=== PATIENT | male | born 1970 | race Caucasian/White ===

== ENCOUNTER 2021-09-05 11:30 | Emergency (ER) | payer OTHER, MEDICAID, SELFPAY ==
[2021-09-05 11:38] VITALS: BP 149/92; PULSE 91; RESP 17; TEMP 37.1; O2SAT 100
--- NOTE | 2021-09-05 12:02 | ED_ITS ---
HPI - Back Pain/Injury General Chief Complaint: Back Pain/Injury Stated Complaint: BACK PAIN Time Seen by Provider: 09/05/21 11:55 Source: patient History of Present Illness HPI Narrative: Patient here for worsening chronic daily lower back pain radiating to the right hip. Review of [facility] report shows patient has been multiple MRSA department in the past month, 9 ER visits [facility] multiple hospitals[facility] [place]. Seen in emergency department 3 days ago. Patient states last MRI many years ago early when the pain was not as bad. Denies denies any IV drug use. No diabetes. No recent illness. No fever chills. No numbness or tingling or weakness to the legs or feet. No saddle paresthesia. No bowel or bladder incontinence or retention. Was given prescription for xanaflex on recent ER visit. Patient up and walking at bedside without difficulty. Able to bend over and takes shoes and socks off and undressed. Patient states he is homeless. He takes a bus to get around different cities in-hospital. Denies any IV drug use or diabetes or immune suppressive medications Related Data Home Medications Medication Instructions Recorded Confirmed hydroxyzine HCl 50 mg tablet 50 mg PO TID 09/05/21 09/05/21 lithium carbonate 300 mg 600 mg PO BID 09/05/21 09/05/21 tablet,extended release Previous Rx's Medication Instructions Recorded baclofen 20 mg tablet 20 mg PO TID #21 tab 09/05/21 Allergies Allergy/AdvReac Type Severity Reaction Status Date / Time No Known Drug Allergies Allergy Verified 09/05/21 11:42 Review of Systems Review of Systems Narrative: GENERAL: Denies chills, fatigue, malaise, fever, sweats. HEENT: Denies sinus pain, ear pain, sore throat RESPIRATORY: Denies dyspnea, cough CARDIOVASCULAR: Denies chest pain, palpitations GASTROINTESTINAL: Denies nausea, vomiting, abdominal pain : Denies dysuria, frequency, hematuria MUSCULOSKELETAL: Positive muscle or bony pain SKIN: Denies rash, skin lesions NEUROLOGIC: Denies weakness, numbness ROS Unobtainable: All systems reviewed & are unremarkable except as noted in HPI and below Patient History Social History Smoking Status: Current every day smoker Smoking Status: Current every day smoker alcohol intake frequency: other Substance Use Type: marijuana Exam Narrative Exam Narrative: GENERAL: in no distress, not toxic not dyspneic, shoes and socks and pants removed HEAD: Normocephalic. EYES: Pupils equal round No scleral icterus. ENT: Mucous membranes moist. NECK: Trachea midline. CARDIOVASCULAR: Regular rate and rhythm without murmurs RESPIRATORY: Clear to auscultation. Breath sounds equal bilaterally. No wheezes, rales, or rhonchi. GASTROINTESTINAL: Abdomen soft, non-tender EXTREMITIES: No gross deformities. BACK: No flank tenderness. Reproducible right supragluteal muscle tenderness and spasm as well as right sacral tenderness. No midline tenderness or step-off of the thoracic or lumbar spine. Able to do side bends left and right as well as leaning forward. Increased pain with leaning back. Slightly antalgic gait but no footdrop at bedside. No pain with straight leg raise on the right. NEURO: AOx4. Strong bilateral patellar reflexes. Light touch intact to bilateral feet. Strong ankle flexion extension bilaterally. SKIN: Warm and dry PSYCH: Not anxious, is cooperative Initial Vital Signs Initial Vital Signs: Vital Signs Temperature 98.8 F 09/05/21 11:38 Pulse Rate 91 H 09/05/21 11:38 Respiratory Rate 17 09/05/21 11:38 Blood Pressure 149/92 H 09/05/21 11:38 Pulse Oximetry 100 09/05/21 11:38 Course Course Course Narrative: No new issues during course of stay. Orders Ordered: ED Orders 09/05/21 12:02 XR hip w pel if done RT 2V Stat XR lumbar spine 2-3V Stat Discontinued Medications Ketorolac Tromethamine (Ketorolac 30 Mg/Ml Vial) 15 mg IM NOW ONE Stop: 09/05/21 12:04 Last Admin: 09/05/21 12:11 Dose: 15 mg Documented by: EDWARD Reevaluation(s) Reevaluation #1: Pain is better. Review x-ray results with patient. Agrees with treatment plan and discharge home and follow-up with ortho spine. Given patient referral. Also agrees with prescription for baclofen Time: 13:04 Vital Signs Vital signs: Vital Signs - 8 hr 09/05/21 11:38 09/05/21 13:14 Temperature 98.8 F Pulse Rate 91 H Respiratory Rate 17 Blood Pressure 149/92 H 143/85 H Pulse Oximetry 100 MDM - Back Pain/Injury Differential Diagnosis Differential diagnosis: Likely lumbar radiculopathy, sciatica, strain of lumbar region, discitis and other (Spinal abscess/degenerative disc disease) Imaging Data Extremity x-ray #1: Radiologist's Impression: [address] [id number] XRay Report Signed Patient: Bryson Rene MR#: [id number] : 1970 Acct:[id number] Age/Sex: 51 / M Date of Service: 09/05/21 Loc: ED Accession Number: [id number] ?? Procedure: XR hip w pel if done RT 2V Ordering Provider: Jerson Lovett MD PROCEDURE:? XR HIP W PEL IF DONE RT 2V ? INDICATIONS:? Pain ? TECHNIQUE:? Frontal view of the pelvis and frogleg lateral view of the right hip was performed. ? COMPARISON:? None. ? FINDINGS:? ? Bones:? No fractures or dislocations.? No suspicious bony lesions.? The visualized pelvic ring appears intact.? Joint spaces are maintained.? Mild degenerative sclerosis and osteophytosis. ? Soft tissues:? No suspicious soft tissue calcifications or masses.? Pelvic phleboliths. ? IMPRESSION:? ? Mild degenerative changes of the hips without acute osseous abnormality. ? ? Dictated by: Edvin Parsons D.O. on 09/05/2021 at 11:32 ? ? Approved by: Edvin Parsons D.O. on 09/05/2021 at 11:33 ? Extremity x-ray #2: Radiologist's Impression: [address] [address] XRay Report Signed Patient: Bryson Rene MR#: [id number] : 1970 Acct:[id number] Age/Sex: 51 / M Date of Service: 09/05/21 Loc: ED Accession Number: [id number] ?? Procedure: XR lumbar spine 2-3V Ordering Provider: Jerson Lovett MD PROCEDURE:? XR LUMBAR SPINE 2-3V ? INDICATIONS:? Pain ? TECHNIQUE:? 2 views of the lumbar spine were acquired.? ? COMPARISON:? None. ? FINDINGS:? ? Bones:? 5 [id number] vertebrae are present.? There is normal bony alignment.? There is mild anterior wedging of L1.? There are bridging osteophytes noted T12-L1 and L1-L2 likely representing chronic process.? Vertebral body heights are otherwise maintained.? There is maintenance of the intervertebral disc spaces.? Mild endplate degenerative changes of L2-L3 as well.? Mild facet arthropathy of the lower lumbar spine.? Sacroiliac joints are unremarkable.? No suspicious bony lesions.? ? Soft tissues:? Overlying bowel gas pattern is normal.? No suspicious soft tissue calcifications.? Pelvic phleboliths. ? ? IMPRESSION:? ? Mild anterior wedging of L1 likely chronic given adjacent bridging osteophytes.? This may be posttraumatic versus physiologic. ? Mild degenerative lumbar spondylosis ? ? Dictated by: Edvin Parsons D.O. on 09/05/2021 at 11:33 ? ? Approved by: Edvin Parsons D.O. on 09/05/2021 at 11:36 ? MDM Narrative Medical decision making narrative: Appropriate for discharge home. Not toxic discharge. Return precautions reviewed with him. No laboratory studies indicated. No MRI. Clinically not abscess or diskitis. No fever chills. No neuro deficits. He agrees with treatment plan and discharged home. Exam reassuring. Discharge Plan Departure Patient Disposition: Home Clinical Impression: Acute exacerbation of chronic low back pain Instructions: Degenerative Disc Disease, DI for Low Back Pain Activity Restrictions/Additional Instructions: Return if worsening questions concerns. Call provided orthopedic office regarding your ongoing chronic back pain. Call Tuesday for office appointment. Return if worse or if any questions or concerns Prescriptions: New baclofen 20 mg tablet 20 mg PO TID Qty: 21 RF: 0 No Action lithium carbonate 300 mg tablet extended release 600 mg PO BID RF: 0 hydroxyzine HCl 50 mg tablet 50 mg PO TID RF: 0 Referrals: Stephen Minor MD [Physician] -
--- NOTE | 2021-09-05 12:02 | DI.RAD.S_ITS ---
PROCEDURE: XR LUMBAR SPINE 2-3V INDICATIONS: Pain TECHNIQUE: 2 views of the lumbar spine were acquired. COMPARISON: None. FINDINGS: Bones: 5 [id number] vertebrae are present. There is normal bony alignment. There is mild anterior wedging of L1. There are bridging osteophytes noted T12-L1 and L1-L2 likely representing chronic process. Vertebral body heights are otherwise maintained. There is maintenance of the intervertebral disc spaces. Mild endplate degenerative changes of L2-L3 as well. Mild facet arthropathy of the lower lumbar spine. Sacroiliac joints are unremarkable. No suspicious bony lesions. Soft tissues: Overlying bowel gas pattern is normal. No suspicious soft tissue calcifications. Pelvic phleboliths. IMPRESSION: Mild anterior wedging of L1 likely chronic given adjacent bridging osteophytes. This may be posttraumatic versus physiologic. Mild degenerative lumbar spondylosis Dictated by: Edvin Parsons D.O. on 09/05/2021 at 11:33 Approved by: Edvin Parsons D.O. on 09/05/2021 at 11:36
--- NOTE | 2021-09-05 12:02 | DI.RAD.S_ITS ---
PROCEDURE: XR HIP W PEL IF DONE RT 2V INDICATIONS: Pain TECHNIQUE: Frontal view of the pelvis and frogleg lateral view of the right hip was performed. COMPARISON: None. FINDINGS: Bones: No fractures or dislocations. No suspicious bony lesions. The visualized pelvic ring appears intact. Joint spaces are maintained. Mild degenerative sclerosis and osteophytosis. Soft tissues: No suspicious soft tissue calcifications or masses. Pelvic phleboliths. IMPRESSION: Mild degenerative changes of the hips without acute osseous abnormality. Dictated by: Edvin Parsons D.O. on 09/05/2021 at 11:32 Approved by: Edvin Parsons D.O. on 09/05/2021 at 11:33
[2021-09-05] MEDS: KETOROLAC 30 MG/ML VIAL 15 MG IM (12:11)
[2021-09-05 13:14] VITALS: BP 143/85
== END 2021-09-05 13:15 | disposition home or self-care (01) ==
PROVIDERS: Emergency Provider Emergency Medicine
DX: M54.50 Low back pain, unspecified (principal); M25.551 Pain in right hip
CPT/HCPCS: 72100; 73502; 99283; J1885

== ENCOUNTER 2021-09-05 17:26 | Emergency (ER) | payer MEDICARE, MEDICAID, SELFPAY ==
[2021-09-05 17:30] VITALS: BP 166/93; PULSE 97; RESP 14; TEMP 36.9; O2SAT 99; BMI 28.7
[2021-09-05 18:05] LABS: UR Morphine/Opiate cutoff 300 Negative (Negative); Ur Creatinine Normal (Normal); Ur Specific Gravity Normal (Normal); Urine Amphetamines Negative (Negative); Urine Barbiturates Negative (Negative); Urine Benzodiazepines Negative (Negative); Urine Cocaine Negative (Negative); Urine MDMA Negative (Negative); Urine Methadone Negative (Negative); Urine Methamphetamines Negative (Negative); Urine Oxycodone Negative (Negative); Urine Phencyclidine Negative (Negative); Urine Tetrahydrocannabinol Positive (Negative); Urine Tricyclic Antidepressant Negative (Negative); Urine pH Normal (Normal)
[2021-09-05 18:16] LABS: Amorphous Sediment Urine 2+; Culture Indicated Urine Cult Not Indicated; Mucus Urine 1+ (Negative); Squamous Epithelial Cell Urine 1-5 /HPF (0-5/HPF); WBC Urine 0-1/HPF (0-5/HPF)
[2021-09-05 18:32] LABS: Add Manual Diff / Slide Review NO; Basophils Absolute Auto 100 /uL (0-100); Basophils Percent Auto 0.4 % (0-2); Eosinophils Absolute Auto 200 /uL (0-450); Eosinophils Percent Auto 1.5 % (2-4); Hematocrit 44.3 % (41-53); Hemoglobin 14.6 g/dL (13.5-17.5); Lymphocytes Absolute Auto 3000 /uL (1100-4500); Lymphocytes Percent Auto 19.1 % (25-40); Mean Corpuscular HGB Conc 32.8 % (30-36); Mean Corpuscular Hemoglobin 27.8 PG (26-34); Mean Corpuscular Volume 84.8 fL (80-100); Monocytes Absolute Auto 700 /uL (0-900); Monocytes Percent Auto 4.2 % (3-14); Neutrophils Absolute Auto 11900 /uL (1500-7000); Neutrophils Percent Auto 74.8 % (50-75); Platelet Count 274 X10^3/uL (150-400); Red Blood Cell Count 5.23 X10^6/uL (4.5-5.9); White Blood Cell Count 15.9 X10^3/uL (4.5-11.0)
[2021-09-05 18:35] LABS: RBC Urine None Seen (0-5/HPF)
[2021-09-05 18:36] LABS: Bacteria Urine None Seen
[2021-09-05 18:38] LABS: COVID19 -Nasal RAPID Negative (Negative)
[2021-09-05 18:44] LABS: Lithium 0.9 mmol/L (0.6-1.2)
[2021-09-05 18:45] LABS: Acetaminophen < 10 ug/mL (10-30); Alanine Aminotransferase 19 IU/L (<50); Albumin 4.3 g/dL (3.5-5.0); Albumin Globulin Ratio 1.4 (1.0-2.8); Alkaline Phosphatase 109 U/L (38-126); Aspartate Aminotransferase 22 IU/L (17-59); BUN Creatinine Ratio 20.5 (6-22); Bilirubin Total 0.3 mg/dL (0.2-1.3); Blood Urea Nitrogen 15 mg/dL (9-20); Calcium 9.4 mg/dL (8.4-10.2); Carbon Dioxide 24 mmol/L (22-32); Chloride 107 mmol/L (98-107); Estimated Glomerular Filt Rate > 60.0 mL/min (>60); Ethanol (ETOH) < 10 mg/dL; Globulin 3.1 g/dL (1.7-4.1); Glucose 103 mg/dL (70-100); HEMOLYSIS 17 (0-50); Potassium 3.1 mmol/L (3.4-5.1); Salicylate < 1.0 mg/dL (<20); Sodium 139 mmol/L (137-145); Total Protein 7.4 g/dL (6.3-8.2)
[2021-09-05 19:04] LABS: Free T4, Direct Thyroxine 1.14 ng/dL (0.78-2.19)
[2021-09-05 19:18] LABS: Thyroid Stimulating Hormone 2.97 uIU/mL (0.47-4.68)
--- NOTE | 2021-09-05 22:54 | PC.NURSE ---
Patient is currently sleeping
--- NOTE | 2021-09-06 02:26 | ED.PSYCH ---
HPI - Psych <Virgil Stafford DO - Last Filed: 09/07/21 02:30> General Chief Complaint: Psychiatric Symptoms Stated Complaint: psyche Time Seen by Provider: 09/05/21 17:57 Source: patient Mode of arrival: Ambulatory History of Present Illness HPI Narrative: 51-year-old male smoker with history of bipolar and schizoaffective disorder presents with a chief complaint of suicidal ideation with a plan. He states he has been homeless for the past 10 months or so and is becoming increasingly frustrated and depressed about his lack of progress. He denies any alcohol or street drugs and states he has been taking his medications as prescribed. He states that he has had increasing auditory hallucinations which he thinks are telling him to hurt himself. He states that he does not know if he would act on those voices but he has had thoughts of cutting himself at the wrist or in the neck. He does have a mental health provider as an outpatient but states they do not write his medications, he does not know right his medications but he states he has been taking them none the less Related Data Home Medications Medication Instructions Recorded Confirmed hydroxyzine HCl 50 mg tablet 50 mg PO TID 09/05/21 09/05/21 lithium carbonate 300 mg 600 mg PO BID 09/05/21 09/05/21 tablet,extended release Previous Rx's Medication Instructions Recorded baclofen 20 mg tablet 20 mg PO TID #21 tab 09/05/21 Allergies Allergy/AdvReac Type Severity Reaction Status Date / Time No Known Drug Allergies Allergy Verified 09/05/21 17:37 Review of Systems <DO Aida Hubbard Last Filed: 09/07/21 02:30> Review of Systems Narrative: GENERAL: Denies chills, fatigue, malaise, fever, sweats. HEENT: Denies sinus pain, ear pain, sore throat, difficulty swallowing, dizziness. RESPIRATORY: Denies dyspnea, cough, wheezing, hemoptysis, sputum. CARDIOVASCULAR: Denies chest pain, palpitations, orthopnea, edema, GASTROINTESTINAL: Denies nausea, vomiting, abdominal pain, diarrhea, constipation, melena. : Denies dysuria, frequency, incontinence, hematuria, urinary retention. MUSCULOSKELETAL: denies weakness, joint pain, or bony pain SKIN: Denies rash, skin lesions, or other NEUROLOGIC: Denies weakness, headache, numbness, change in speech, confusion, seizures, incoordination. PSYCHIATRIC: See HPI 12 point review of systems is negative except for those stated above Patient History <Virgil Stafford DO - Last Filed: 09/07/21 02:30> Social History Smoking Status: Current every day smoker Smoking Status: Current every day smoker alcohol intake frequency: other Substance Use Type: marijuana Exam <Virgil Stafford DO - Last Filed: 09/07/21 02:30> Narrative Exam Narrative: GENERAL: [51 year old patient appears stated age. Well-developed patient, in mild distress. Resting comfortably, tearful, poor eye contact HEAD: Atraumatic. Normocephalic. EYES: Pupils equal round and reactive. Extraocular motions intact. No scleral icterus. No injection or drainage. ENT: Nose without bleeding, purulent drainage. Throat without erythema, tonsillar hypertrophy or exudate. Airway patent. NECK: Trachea midline. Non tender CARDIOVASCULAR: Regular rate and rhythm without murmurs, gallops, or rubs. RESPIRATORY: Clear to auscultation. Breath sounds equal bilaterally. No wheezes, rales, or rhonchi. GASTROINTESTINAL: Abdomen soft, non-tender, nondistended. EXTREMITIES: No edema or joint tenderness. BACK: Nontender without deformity or crepitance. No flank tenderness. NEURO: AOx3. SKIN: No rash or erythema of visible areas Initial Vital Signs Initial Vital Signs: Vital Signs Temperature 98.4 F 09/05/21 17:30 Pulse Rate 97 H 09/05/21 17:30 Respiratory Rate 14 09/05/21 17:30 Blood Pressure 166/93 H 09/05/21 17:30 Pulse Oximetry 99 09/05/21 17:30 <Jazmín Sullivan DO - Last Filed: 09/06/21 19:07> Initial Vital Signs Initial Vital Signs: Vital Signs Temperature 98.4 F 09/05/21 17:30 Pulse Rate 97 H 09/05/21 17:30 Respiratory Rate 14 09/05/21 17:30 Blood Pressure 166/93 H 09/05/21 17:30 Pulse Oximetry 99 09/05/21 17:30 Course <Virgil Stafford DO - Last Filed: 09/07/21 02:30> Orders Ordered: Discontinued Medications Hydroxyzine Pamoate (Hydroxyzine Pamoate 25 Mg Capsule) 50 mg PO NOW ONE Stop: 09/06/21 14:00 Last Admin: 09/06/21 14:05 Dose: 50 mg Documented by: TOMER Walkerton Carbonate (Walkerton 150 Mg Ir Capsule) 600 mg PO NOW ONE Stop: 09/06/21 05:31 Last Admin: 09/06/21 05:42 Dose: 600 mg Documented by: LIVIER Vital Signs Vital signs: Vital Signs - 8 hr 09/06/21 12:56 09/06/21 14:19 Temperature 98.4 F Pulse Rate 76 63 Respiratory Rate 20 Blood Pressure 134/78 147/74 H Pulse Oximetry 96 100 <Jazmín Sullivan DO - Last Filed: 09/06/21 19:07> Orders Ordered: Discontinued Medications Hydroxyzine Pamoate (Hydroxyzine Pamoate 25 Mg Capsule) 50 mg PO NOW ONE Stop: 09/06/21 14:00 Last Admin: 09/06/21 14:05 Dose: 50 mg Documented by: TOMER Walkerton Carbonate (Walkerton 150 Mg Ir Capsule) 600 mg PO NOW ONE Stop: 09/06/21 05:31 Last Admin: 09/06/21 05:42 Dose: 600 mg Documented by: LIVIER Vital Signs Vital signs: Vital Signs - 8 hr 09/06/21 12:56 09/06/21 14:19 Temperature 98.4 F Pulse Rate 76 63 Respiratory Rate 20 Blood Pressure 134/78 147/74 H Pulse Oximetry 96 100 MDM - Psych <Virgil Stafford DO - Last Filed: 09/07/21 02:30> Lab Data Result diagrams: 09/05/21 18:25 09/05/21 18:25 Labs: Lab Results 09/05/21 09/05/21 09/05/21 Range/Units 17:48 17:58 18:15 WBC (4.5-11.0) X10^3/uL RBC (4.5-5.9) X10^6/uL Hgb (13.5-17.5) g/dL Hct (41-53) % MCV (80-100) fL MCH (26-34) PG MCHC (30-36) % RDW (11.6-14.8) % Plt Count (150-400) X10^3/uL Neut % (Auto) (50-75) % Lymph % (Auto) (25-40) % [place]range % (Auto) (3-14) % Eos % (Auto) (2-4) % Baso % (Auto) (0-2) % Neut # (Auto) (9942-6535) /uL Lymph # (Auto) (5659-9207) /uL Lagrange # (Auto) (0-900) /uL Eos # (Auto) (0-450) /uL Baso # (Auto) (0-100) /uL Sodium (137-145) mmol/L Potassium (3.4-5.1) mmol/L Chloride (98-107) mmol/L Carbon Dioxide (22-32) mmol/L BUN (9-20) mg/dL Creatinine (0.66-1.25) mg/dL Estimated GFR (>60) mL/min BUN/Creatinine Ratio (6-22) Glucose (70-100) mg/dL Calcium (8.4-10.2) mg/dL Total Bilirubin (0.2-1.3) mg/dL AST (17-59) IU/L ALT (<50) IU/L Alkaline Phosphatase (38-126) U/L Total Protein (6.3-8.2) g/dL Albumin (3.5-5.0) g/dL Globulin (1.7-4.1) g/dL Albumin/Globulin Ratio (1.0-2.8) TSH (0.47-4.68) uIU/mL Free T4 (0.78-2.19) ng/dL Urine RBC None seen (0-5/HPF) Urine WBC 0-1/hpf (0-5/HPF) Ur Squamous Epith Cells 1-5 /hpf (0-5/HPF) Amorphous Sediment 2+ Urine Bacteria None seen (None) Urine Mucus 1+ H (Negative) Ur Culture Indicated? Cult not indicated Salicylates (<20) mg/dL U Opiates 300ng/mL cut Negative (Negative) Ur Oxycodone Screen Negative (Negative) Urine Methadone Screen Negative (Negative) Acetaminophen (10-30) ug/mL Ur Barbiturates Screen Negative (Negative) U Tricyclic Antidepress Negative (Negative) Ur Phencyclidine Scrn Negative (Negative) Ur Amphetamines Screen Negative (Negative) U Methamphetamines Scrn Negative (Negative) Ur MDMA Scrn (Ecstasy) Negative (Negative) U Benzodiazepines Scrn Negative (Negative) Walkerton (0.6-1.2) mmol/L Urine Cocaine Screen Negative (Negative) U Marijuana (THC) Screen Positive H (Negative) Ethyl Alcohol ( - 10) mg/dL SARS-CoV-2 (PCR) Negative (Negative) 09/05/21 09/05/21 09/05/21 Range/Units 18:25 18:25 18:25 WBC 15.9 H (4.5-11.0) X10^3/uL RBC 5.23 (4.5-5.9) X10^6/uL Hgb 14.6 (13.5-17.5) g/dL Hct 44.3 (41-53) % MCV 84.8 (80-100) fL MCH 27.8 (26-34) PG MCHC 32.8 (30-36) % RDW 15.0 H (11.6-14.8) % Plt Count 274 (150-400) X10^3/uL Neut % (Auto) 74.8 (50-75) % Lymph % (Auto) 19.1 L (25-40) % Lagrange % (Auto) 4.2 (3-14) % Eos % (Auto) 1.5 L (2-4) % Baso % (Auto) 0.4 (0-2) % Neut # (Auto) 82932 H (4223-9000) /uL Lymph # (Auto) 3000 (0224-3616) /uL Lagrange # (Auto) 700 (0-900) /uL Eos # (Auto) 200 (0-450) /uL Baso # (Auto) 100 (0-100) /uL Sodium 139 (137-145) mmol/L Potassium 3.1 L (3.4-5.1) mmol/L Chloride 107 (98-107) mmol/L Carbon Dioxide 24 (22-32) mmol/L BUN 15 (9-20) mg/dL Creatinine 0.73 (0.66-1.25) mg/dL Estimated GFR > 60.0 (>60) mL/min BUN/Creatinine Ratio 20.5 (6-22) Glucose 103 H (70-100) mg/dL Calcium 9.4 (8.4-10.2) mg/dL Total Bilirubin 0.3 (0.2-1.3) mg/dL AST 22 (17-59) IU/L ALT 19 (<50) IU/L Alkaline Phosphatase 109 (38-126) U/L Total Protein 7.4 (6.3-8.2) g/dL Albumin 4.3 (3.5-5.0) g/dL Globulin 3.1 (1.7-4.1) g/dL Albumin/Globulin Ratio 1.4 (1.0-2.8) TSH 2.97 (0.47-4.68) uIU/mL Free T4 1.14 (0.78-2.19) ng/dL Urine RBC (0-5/HPF) Urine WBC (0-5/HPF) Ur Squamous Epith Cells (0-5/HPF) Amorphous Sediment Urine Bacteria (None) Urine Mucus (Negative) Ur Culture Indicated? Salicylates < 1.0 (<20) mg/dL U Opiates 300ng/mL cut (Negative) Ur Oxycodone Screen (Negative) Urine Methadone Screen (Negative) Acetaminophen < 10 L (10-30) ug/mL Ur Barbiturates Screen (Negative) U Tricyclic Antidepress (Negative) Ur Phencyclidine Scrn (Negative) Ur Amphetamines Screen (Negative) U Methamphetamines Scrn (Negative) Ur MDMA Scrn (Ecstasy) (Negative) U Benzodiazepines Scrn (Negative) Walkerton 0.9 (0.6-1.2) mmol/L Urine Cocaine Screen (Negative) U Marijuana (THC) Screen (Negative) Ethyl Alcohol < 10 ( - 10) mg/dL SARS-CoV-2 (PCR) (Negative) Urine Dip Bedside Urine Glucose Negative Bedside Urine Bilirubin + 1 Bedside Urine Ketone +/- 5 Urine Specific Dobson 1.030 Bedside Urine Occult Blood - Negative Bedside Urine pH 6.0 Bedside Urine Protein + 30 Bedside Urine Urobilinogen - Negative Bedside Urine Nitrite - Negative Bedside Urine Leukocytes - Negative Esterase <Jazmín Sullivan DO - Last Filed: 09/06/21 19:07> Lab Data Labs: Lab Results 09/05/21 09/05/21 09/05/21 Range/Units 17:48 17:58 18:15 WBC (4.5-11.0) X10^3/uL RBC (4.5-5.9) X10^6/uL Hgb (13.5-17.5) g/dL Hct (41-53) % MCV (80-100) fL MCH (26-34) PG MCHC (30-36) % RDW (11.6-14.8) % Plt Count (150-400) X10^3/uL Neut % (Auto) (50-75) % Lymph % (Auto) (25-40) % Lagrange % (Auto) (3-14) % Eos % (Auto) (2-4) % Baso % (Auto) (0-2) % Neut # (Auto) (6565-4248) /uL Lymph # (Auto) (3673-2658) /uL Lagrange # (Auto) (0-900) /uL Eos # (Auto) (0-450) /uL Baso # (Auto) (0-100) /uL Sodium (137-145) mmol/L Potassium (3.4-5.1) mmol/L Chloride (98-107) mmol/L Carbon Dioxide (22-32) mmol/L BUN (9-20) mg/dL Creatinine (0.66-1.25) mg/dL Estimated GFR (>60) mL/min BUN/Creatinine Ratio (6-22) Glucose (70-100) mg/dL Calcium (8.4-10.2) mg/dL Total Bilirubin (0.2-1.3) mg/dL AST (17-59) IU/L ALT (<50) IU/L Alkaline Phosphatase (38-126) U/L Total Protein (6.3-8.2) g/dL Albumin (3.5-5.0) g/dL Globulin (1.7-4.1) g/dL Albumin/Globulin Ratio (1.0-2.8) TSH (0.47-4.68) uIU/mL Free T4 (0.78-2.19) ng/dL Urine RBC None seen (0-5/HPF) Urine WBC 0-1/hpf (0-5/HPF) Ur Squamous Epith Cells 1-5 /hpf (0-5/HPF) Amorphous Sediment 2+ Urine Bacteria None seen (None) Urine Mucus 1+ H (Negative) Ur Culture Indicated? Cult not indicated Salicylates (<20) mg/dL U Opiates 300ng/mL cut Negative (Negative) Ur Oxycodone Screen Negative (Negative) Urine Methadone Screen Negative (Negative) Acetaminophen (10-30) ug/mL Ur Barbiturates Screen Negative (Negative) U Tricyclic Antidepress Negative (Negative) Ur Phencyclidine Scrn Negative (Negative) Ur Amphetamines Screen Negative (Negative) U Methamphetamines Scrn Negative (Negative) Ur MDMA Scrn (Ecstasy) Negative (Negative) U Benzodiazepines Scrn Negative (Negative) Walkerton (0.6-1.2) mmol/L Urine Cocaine Screen Negative (Negative) U Marijuana (THC) Screen Positive H (Negative) Ethyl Alcohol ( - 10) mg/dL SARS-CoV-2 (PCR) Negative (Negative) 09/05/21 09/05/21 09/05/21 Range/Units 18:25 18:25 18:25 WBC 15.9 H (4.5-11.0) X10^3/uL RBC 5.23 (4.5-5.9) X10^6/uL Hgb 14.6 (13.5-17.5) g/dL Hct 44.3 (41-53) % MCV 84.8 (80-100) fL MCH 27.8 (26-34) PG MCHC 32.8 (30-36) % RDW 15.0 H (11.6-14.8) % Plt Count 274 (150-400) X10^3/uL Neut % (Auto) 74.8 (50-75) % Lymph % (Auto) 19.1 L (25-40) % Lagrange % (Auto) 4.2 (3-14) % Eos % (Auto) 1.5 L (2-4) % Baso % (Auto) 0.4 (0-2) % Neut # (Auto) 95304 H (3155-3649) /uL Lymph # (Auto) 3000 (0221-8560) /uL Lagrange # (Auto) 700 (0-900) /uL Eos # (Auto) 200 (0-450) /uL Baso # (Auto) 100 (0-100) /uL Sodium 139 (137-145) mmol/L Potassium 3.1 L (3.4-5.1) mmol/L Chloride 107 (98-107) mmol/L Carbon Dioxide 24 (22-32) mmol/L BUN 15 (9-20) mg/dL Creatinine 0.73 (0.66-1.25) mg/dL Estimated GFR > 60.0 (>60) mL/min BUN/Creatinine Ratio 20.5 (6-22) Glucose 103 H (70-100) mg/dL Calcium 9.4 (8.4-10.2) mg/dL Total Bilirubin 0.3 (0.2-1.3) mg/dL AST 22 (17-59) IU/L ALT 19 (<50) IU/L Alkaline Phosphatase 109 (38-126) U/L Total Protein 7.4 (6.3-8.2) g/dL Albumin 4.3 (3.5-5.0) g/dL Globulin 3.1 (1.7-4.1) g/dL Albumin/Globulin Ratio 1.4 (1.0-2.8) TSH 2.97 (0.47-4.68) uIU/mL Free T4 1.14 (0.78-2.19) ng/dL Urine RBC (0-5/HPF) Urine WBC (0-5/HPF) Ur Squamous Epith Cells (0-5/HPF) Amorphous Sediment Urine Bacteria (None) Urine Mucus (Negative) Ur Culture Indicated? Salicylates < 1.0 (<20) mg/dL U Opiates 300ng/mL cut (Negative) Ur Oxycodone Screen (Negative) Urine Methadone Screen (Negative) Acetaminophen < 10 L (10-30) ug/mL Ur Barbiturates Screen (Negative) U Tricyclic Antidepress (Negative) Ur Phencyclidine Scrn (Negative) Ur Amphetamines Screen (Negative) U Methamphetamines Scrn (Negative) Ur MDMA Scrn (Ecstasy) (Negative) U Benzodiazepines Scrn (Negative) Walkerton 0.9 (0.6-1.2) mmol/L Urine Cocaine Screen (Negative) U Marijuana (THC) Screen (Negative) Ethyl Alcohol < 10 ( - 10) mg/dL SARS-CoV-2 (PCR) (Negative) Urine Dip Bedside Urine Glucose Negative Bedside Urine Bilirubin + 1 Bedside Urine Ketone +/- 5 Urine Specific Dobson 1.030 Bedside Urine Occult Blood - Negative Bedside Urine pH 6.0 Bedside Urine Protein + 30 Bedside Urine Urobilinogen - Negative Bedside Urine Nitrite - Negative Bedside Urine Leukocytes - Negative Esterase MDM Narrative Medical decision making narrative: Patient is signed out to me by Dr. Stafford. I have seen evaluated patient myself. Social work has been in to see patient. He is been accepted at [facility] and transfer has been arranged. He has been cooperative during his stay. He is needing something else for anxiety for traveling. Discharge Plan Departure Patient Disposition: Xfer Psychiatric [facility]osp Clinical Impression: Suicidal ideation
[2021-09-06] MEDS: LITHIUM 150 MG IR CAPSULE 600 MG PO (05:42)
[2021-09-06 05:45] VITALS: BP 135/68; PULSE 55; RESP 16; TEMP 36.7; O2SAT 99
--- NOTE | 2021-09-06 07:28 | PC.NURSE ---
Pt is sleeping soundly with even, unlabored respirations. Covered in blankets, personal belongings at the bedside. Per shift change report, he will see DATA ENTRY ASSISTANT at will but is not restricted from discharge.
--- NOTE | 2021-09-06 07:57 | PC.NURSE ---
Patient resting with eyes closed, in no apparent distress, bilateral chest rise and fall noted. Skin p/w/d.
--- NOTE | 2021-09-06 09:39 | PC.NURSE ---
Breakfast tray provided to patient.
--- NOTE | 2021-09-06 10:38 | PC.NURSE ---
ODALIS Garibay at bedside. Pt wakes to her presence.
[2021-09-06 12:56] VITALS: BP 134/78; PULSE 76; O2SAT 96
[2021-09-06] MEDS: hydrOXYzine pamoate 25 MG CAPSULE 50 MG PO (14:05)
[2021-09-06 14:19] VITALS: BP 147/74; PULSE 63; RESP 20; TEMP 36.9; O2SAT 100
== END 2021-09-06 15:05 ==
PROVIDERS: Emergency Medicine; Emergency Provider Emergency Medicine
DX: R45.851 Suicidal ideations (principal); Z20.822 Contact with and (suspected) exposure to COVID-19
CPT/HCPCS: 72100; 73502; 80053; 80178; 80305; 80320; 80329; 81003; 81015; 84439; 84443; 85025; 87635; 99283; 99284; C9803; G0480; J1885

== ENCOUNTER 2021-12-17 18:09 | Emergency (ER) | payer MEDICARE, MEDICAID, SELFPAY ==
[2021-12-17 18:17] VITALS: BP 140/78; PULSE 96; RESP 16; TEMP 37.3; O2SAT 99; BMI 28.3
--- NOTE | 2021-12-17 18:42 | ED_ITS ---
HPI - Back Pain/Injury General Chief Complaint: Back Pain/Injury Stated Complaint: back pain Time Seen by Provider: 12/17/21 18:27 Source: patient History of Present Illness HPI Narrative: 51-year-old male daily smoker with history of prior back injury and sciatica as well as mental health diagnosis presents for evaluation of gradually worsening right lower back pain with radiation down his right leg. He denies any new injury, fever, chills, use of blood thinners. He denies any loss of control of bowel or bladder. He denies any lower extremity numbness, weakness or tingling. He states he has been walking around more than normal lately and states that the pain in his right lower back is flared up over the past few days and now radiates down his right leg. Historically he has prescriptions for baclofen and an anti-inflammatory but he is currently out. Related Data Home Medications Medication Instructions Recorded Confirmed hydroxyzine HCl 50 mg tablet 50 mg PO TID 09/05/21 09/05/21 lithium carbonate 300 mg 600 mg PO BID 09/05/21 09/05/21 tablet,extended release Previous Rx's Medication Instructions Recorded baclofen 20 mg tablet 20 mg PO TID #21 tab 09/05/21 baclofen 20 mg tablet 20 mg PO TID PRN #20 tab 12/17/21 gabapentin 300 mg capsule 300 mg PO BEDTIME #14 cap 12/17/21 meloxicam 15 mg tablet 15 mg PO DAILY #14 tab 12/17/21 methylprednisolone 4 mg tablets in See Rx Instructions .ROUTE 12/17/21 a dose pack (Medrol (Seth)) .COMPLEX #21 ea Allergies Allergy/AdvReac Type Severity Reaction Status Date / Time No Known Drug Allergies Allergy Verified 09/05/21 17:37 Review of Systems Review of Systems Narrative: GENERAL: Denies chills, fatigue, malaise, fever, sweats. HEENT: Denies sinus pain, ear pain, sore throat, difficulty swallowing, dizziness. RESPIRATORY: Denies dyspnea, cough, wheezing, hemoptysis, sputum. CARDIOVASCULAR: Denies chest pain, palpitations, orthopnea, edema, GASTROINTESTINAL: Denies nausea, vomiting, abdominal pain, diarrhea, constipation, melena. : Denies dysuria, frequency, incontinence, hematuria, urinary retention. MUSCULOSKELETAL: See HPI SKIN: Denies rash, skin lesions, or other NEUROLOGIC: Denies weakness, headache, numbness, change in speech, confusion, seizures, incoordination. PSYCHIATRIC: No concerning psychosocial issues. 12 point review of systems is negative except for those stated above Patient History Social History Smoking Status: Current every day smoker Smoking Status: Current every day smoker alcohol intake frequency: other Substance Use Type: marijuana and methamphetamine Exam Narrative Exam Narrative: GENERAL: [51 year old patient appears stated age. Well-developed patient, in mild distress. Flat affect HEAD: Atraumatic. Normocephalic. EYES: Pupils equal round and reactive. Extraocular motions intact. No scleral icterus. No injection or drainage. ENT: Nose without bleeding, purulent drainage. Throat without erythema, tonsillar hypertrophy or exudate. Airway patent. NECK: Trachea midline. Non tender CARDIOVASCULAR: Regular rate and rhythm without murmurs, gallops, or rubs. RESPIRATORY: Clear to auscultation. Breath sounds equal bilaterally. No wheezes, rales, or rhonchi. GASTROINTESTINAL: Abdomen soft, non-tender, nondistended. EXTREMITIES: No edema or joint tenderness. BACK: cube machine tender but free of any obvious external abnormalities. Patient exam notes decreased range of motion and muscle spasm, but no CVA tenderness, or vertebral point tenderness. There are no symptoms of cauda equina such as saddle anesthesia, and decreased reflexes, decreased sensation or strength. NEURO: AOx3. SKIN: No rash or erythema of visible areas Initial Vital Signs Initial Vital Signs: Vital Signs Temperature 99.1 F 12/17/21 18:17 Pulse Rate 96 H 12/17/21 18:17 Respiratory Rate 16 12/17/21 18:17 Blood Pressure 140/78 12/17/21 18:17 Pulse Oximetry 99 12/17/21 18:17 Course Orders Ordered: Discontinued Medications Gabapentin (Gabapentin 300 Mg Capsule) 300 mg PO NOW ONE Stop: 12/17/21 18:47 Last Admin: 12/17/21 18:51 Dose: 300 mg Documented by: ELO Ketorolac Tromethamine (Ketorolac 30 Mg/Ml Vial) 30 mg IM NOW ONE Stop: 12/17/21 18:47 Last Admin: 12/17/21 18:51 Dose: 30 mg Documented by: ELO Vital Signs Vital signs: Vital Signs - 8 hr 12/17/21 18:17 Temperature 99.1 F Pulse Rate 96 H Respiratory Rate 16 Blood Pressure 140/78 Pulse Oximetry 99 MDM - Back Pain/Injury MDM Narrative Medical decision making narrative: Multiple etiologies of back pain considered including; Epidural abscess, cauda equina, mass occupying lesion, and other considered, however no indications of a neurosurgical emergency are present, return precautions discussed and questions answered to his apparent satisfaction Discharge Plan Departure Patient Disposition: Home Clinical Impression: Sciatica Instructions: DI for Back Pain With Sciatica Activity Restrictions/Additional Instructions: *You have been diagnosed with [Lumbar pain with right-sided sciatica ] *What to do: *Please continue to take your regular medications as directed. [x ] New medication prescriptions sent to your pharmacy: [ [facility] ] [ ] New medication written as a paper prescription [ ] No new medications given *Please follow up with your primary care provider in 2-3 days, call for an appointment. Let them know you were seen in the Emergency Department and that we ask that you be seen in follow up. We will electronically transmit a record of today's note if your PCP is in our system *If you do not have a primary care provider please contact the [facility] Resource line at [phone]. They will ask some questions about your medical history and help get you set up with a doctor in the community. *Return to Emergency Department if you should have any new, worsening or concerning symptoms, such as [fever greater than 101 F, shaking chills, worsening pain, persistent vomiting, lower extremity weakness, loss of control of bowel or bladder other bothersome symptoms] Prescriptions: New gabapentin 300 mg capsule 300 mg PO BEDTIME Qty: 14 0RF methylprednisolone [Medrol (Seth)] 4 mg tablets,dose pack See Rx Instructions .ROUTE .COMPLEX Qty: 21 0RF Rx Instructions: orally per package directions baclofen 20 mg tablet 20 mg PO TID PRN (Reason: spasm) Qty: 20 0RF meloxicam 15 mg tablet 15 mg PO DAILY Qty: 14 0RF No Action lithium carbonate 300 mg tablet extended release 600 mg PO BID 0RF hydroxyzine HCl 50 mg tablet 50 mg PO TID 0RF baclofen 20 mg tablet 20 mg PO TID Qty: 21 0RF Referrals: Carlos A Watson DO [Physician] - Stephen Minor MD [Physician] -
[2021-12-17] MEDS: KETOROLAC 30 MG/ML VIAL IM (18:51)
[2021-12-17] MEDS: GABAPENTIN 300 MG CAPSULE PO (18:51)
== END 2021-12-17 19:10 | disposition home or self-care (01) ==
PROVIDERS: Emergency Provider Emergency Medicine
DX: M54.41 Lumbago with sciatica, right side (principal); F17.200 Nicotine dependence, unspecified, uncomplicated
CPT/HCPCS: 96372; 99283; J1885

== ENCOUNTER 2021-12-18 02:13 | Emergency (ER) | payer MEDICARE, MEDICAID, SELFPAY ==
[2021-12-18] VITALS (16 sets, daily range): BP systolic 119–148; BP diastolic 69–88; PULSE 52–61; RESP 11–18; TEMP 36.8; O2SAT 92–99; BMI 28.4
--- NOTE | 2021-12-18 02:08 | DI.CT.S_ITS ---
PROCEDURE: CT HEAD/BRAIN WO CON INDICATIONS: altered, possible trauma TECHNIQUE: Noncontrast 4.5 mm thick angled axial sections acquired from the foramen magnum to the vertex, with coronal and sagittal reformats. For radiation dose reduction, the following was used: automated exposure control, adjustment of mA and/or kV according to patient size. COMPARISON: None. FINDINGS: Image quality: Excellent. CSF spaces: Basal cisterns are patent. No extra-axial fluid collections. The ventricles are symmetric in size and shape. Brain: No intracranial bleeds or masses. There is cerebral volume loss for age, with resultant ventricular and sulcal prominence. There are periventricular and deep white matter chronic small vessel ischemic changes. There is intracranial internal carotid artery atherosclerosis. Skull and face: Calvarium and visualized facial bones appear intact, without suspicious lesions. Sinuses: Visualized sinuses and mastoids are clear. IMPRESSION: No acute intracranial disease process. Dictated by: Melanie Rubin MD, PhD on 12/18/2021 at 7:15 Approved by: Melanie Rubin MD, PhD on 12/18/2021 at 7:16
--- NOTE | 2021-12-18 02:09 | DI.CT.S_ITS ---
PROCEDURE: CT CERVICAL SPINE WO CON INDICATIONS: found down, unresponsive TECHNIQUE: Noncontrast 3 mm thick sections acquired from the skull base to the T4 level. Sagittal and coronal reformats were then constructed. For radiation dose reduction, the following was used: automated exposure control, adjustment of mA and/or kV according to patient size. COMPARISON: None. FINDINGS: Image quality: Degraded by patient motion artifact. Bones: No fractures or dislocations. Visualized superior ribs are intact. Spine degenerative disc disease and facet arthropathy. Soft tissues: Prevertebral soft tissues are normal in thickness. No paravertebral hematomas. No apical pneumothoraces. IMPRESSION: No fracture within limitations related to motion artifact. No acute osseous lesion within limitations related to motion artifact. If symptoms and/or clinical suspicion for pathology persists, evaluation with MRI should be considered for further assessment. Dictated by: Melanie Rubin MD, PhD on 12/18/2021 at 7:44 Approved by: Melanie Rubin MD, PhD on 12/18/2021 at 7:47
--- NOTE | 2021-12-18 02:17 | ED.OVERDOSE ---
HPI - Overdose <Virgil Stafford DO - Last Filed: 12/21/21 20:15> General Chief Complaint: Toxicology Problem Stated Complaint: ETOH Time Seen by Provider: 12/18/21 02:17 History of Present Illness HPI Narrative: 51-year-old male daily smoker with history of back pain and mental health diagnoses returns for the 2nd time today, this time by EMS. He was found behind a local grocery store, where his prescriptions were filled and was found unresponsive lying on the ground surrounded by bottles of alcohol and at least 1 pipe. He is responding to noxious stimuli and there is no obvious sign of trauma. He had filled the prescriptions given to him earlier which include baclofen, gabapentin a Medrol Dosepak and meloxicam. Medics also have a bag which includes olanzapine, hydroxyzine, no opioids are noted. Patient was given Narcan on scene intranasally with no improvement Related Data Home Medications Medication Instructions Recorded Confirmed hydroxyzine HCl 50 mg tablet 50 mg PO TID PRN 09/05/21 12/19/21 lithium carbonate 300 mg 600 mg PO BID 09/05/21 12/19/21 tablet,extended release acetaminophen 500 mg tablet 1,000 mg PO Q6H PRN 12/19/21 12/19/21 chlorpromazine 50 mg tablet 50 mg PO Q4HR PRN 12/19/21 12/19/21 gabapentin 300 mg capsule 300 mg PO BEDTIME 12/19/21 12/19/21 meloxicam 15 mg tablet 15 mg PO DAILY PRN 12/19/21 12/19/21 olanzapine 10 mg tablet 10 mg PO BID 12/19/21 12/19/21 Allergies Allergy/AdvReac Type Severity Reaction Status Date / Time No Known Drug Allergies Allergy Verified 12/19/21 13:08 Review of Systems <Virgil Stafford DO - Last Filed: 12/21/21 20:15> Review of Systems ROS Unobtainable: Unobtainable due to mental status/LOC Patient History <DO Aida Hubbard Last Filed: 12/21/21 20:15> Medical History Methamphetamine use Schizophrenia Social History Smoking Status: Current every day smoker Smoking Status: Current every day smoker alcohol intake frequency: other Substance Use Type: marijuana and methamphetamine Exam <Virgil Stafford DO - Last Filed: 12/21/21 20:15> Narrative Exam Narrative: GENERAL: [51 year old patient appears stated age. Altered, arousable to noxious stimuli, guarding his airway, managing secretions HEAD: Atraumatic. Normocephalic. No contusions or abrasions EYES: Pupils equal round and reactive. Extraocular motions intact. No scleral icterus. No injection or drainage. ENT: Nose without bleeding, purulent drainage. Throat without erythema, tonsillar hypertrophy or exudate. Airway patent. NECK: Trachea midline. Non tender CARDIOVASCULAR: Regular rate and rhythm without murmurs, gallops, or rubs. RESPIRATORY: Clear to auscultation. Breath sounds equal bilaterally. No wheezes, rales, or rhonchi. GASTROINTESTINAL: Abdomen soft, non-tender, nondistended. EXTREMITIES: No edema or joint tenderness. BACK: web press roll tender but free of any obvious external abnormalities. Patient exam notes decreased range of motion and muscle spasm, but no CVA tenderness, or vertebral point tenderness. There are no symptoms of cauda equina such as saddle anesthesia, and decreased reflexes, decreased sensation or strength. NEURO: AOx3. SKIN: No rash or erythema of visible areas Initial Vital Signs Initial Vital Signs: Vital Signs Temperature 98.2 F 12/18/21 02:19 Pulse Rate 54 L 12/18/21 02:19 Respiratory Rate 11 L 12/18/21 02:19 Blood Pressure 136/88 12/18/21 02:19 Pulse Oximetry 98 12/18/21 02:19 <Carlos A Wright MD - Last Filed: 12/18/21 19:34> Initial Vital Signs Initial Vital Signs: Vital Signs Temperature 98.2 F 12/18/21 02:19 Pulse Rate 54 L 12/18/21 02:19 Respiratory Rate 11 L 12/18/21 02:19 Blood Pressure 136/88 12/18/21 02:19 Pulse Oximetry 98 12/18/21 02:19 Course <Virgil Stafford DO - Last Filed: 12/21/21 20:15> Orders Ordered: ED Orders 12/18/21 02:08 CT head/brain wo con Stat 12/18/21 02:09 CT cervical spine wo con Stat 12/18/21 02:24 CT lumbar spine wo con Stat 12/18/21 02:31 Acetaminophen Stat CBC Auto Diff [Complete Blood Count AUTO DIFF] Stat CMP [Comprehensive Metabolic Panel] Stat Ethanol (ETOH) Stat Salicylate Stat 12/18/21 03:35 Urine Drug Screen, Rapid Stat Vital Signs Vital signs: Vital Signs - 8 hr 12/18/21 02:19 12/18/21 03:06 12/18/21 03:30 Temperature 98.2 F Pulse Rate 54 L 60 61 Respiratory Rate 11 L 11 L 11 L Blood Pressure 136/88 131/74 Pulse Oximetry 98 96 97 12/18/21 04:00 12/18/21 04:30 12/18/21 05:00 Temperature Pulse Rate 52 L 56 L 56 L Respiratory Rate 11 L 12 11 L Blood Pressure 138/84 135/77 133/75 Pulse Oximetry 93 95 95 12/18/21 05:30 12/18/21 06:00 12/18/21 06:30 Temperature Pulse Rate 57 L 58 L 56 L Respiratory Rate 12 12 13 Blood Pressure 119/70 121/72 123/78 Pulse Oximetry 93 94 92 12/18/21 07:00 12/18/21 07:30 12/18/21 08:00 Temperature Pulse Rate 56 L 55 L 60 Respiratory Rate 14 12 12 Blood Pressure 135/69 130/72 134/77 Pulse Oximetry 96 92 98 12/18/21 08:40 Temperature Pulse Rate 58 L Respiratory Rate 18 Blood Pressure 134/77 Pulse Oximetry 98 <Carlos A Wright MD - Last Filed: 12/18/21 19:34> Course Course Narrative: The patient arrived, apparently did influence of alcohol and drugs. His alcohol level is negative, he is clearly on drugs. He has rested in the ER the night. He is now weak, and mobile. He still has slurred speech but, but is communicate. He is hungry. He is expressing his wishes to go home. Joi JAMES @ 09:24 12/18/21. Orders Ordered: ED Orders 12/18/21 02:08 CT head/brain wo con Stat 12/18/21 02:09 CT cervical spine wo con Stat 12/18/21 02:24 CT lumbar spine wo con Stat 12/18/21 02:31 Acetaminophen Stat CBC Auto Diff [Complete Blood Count AUTO DIFF] Stat CMP [Comprehensive Metabolic Panel] Stat Ethanol (ETOH) Stat Salicylate Stat 12/18/21 03:35 Urine Drug Screen, Rapid Stat Vital Signs Vital signs: Vital Signs - 8 hr 12/18/21 02:19 12/18/21 03:06 12/18/21 03:30 Temperature 98.2 F Pulse Rate 54 L 60 61 Respiratory Rate 11 L 11 L 11 L Blood Pressure 136/88 131/74 Pulse Oximetry 98 96 97 12/18/21 04:00 12/18/21 04:30 12/18/21 05:00 Temperature Pulse Rate 52 L 56 L 56 L Respiratory Rate 11 L 12 11 L Blood Pressure 138/84 135/77 133/75 Pulse Oximetry 93 95 95 12/18/21 05:30 12/18/21 06:00 12/18/21 06:30 Temperature Pulse Rate 57 L 58 L 56 L Respiratory Rate 12 12 13 Blood Pressure 119/70 121/72 123/78 Pulse Oximetry 93 94 92 12/18/21 07:00 12/18/21 07:30 12/18/21 08:00 Temperature Pulse Rate 56 L 55 L 60 Respiratory Rate 14 12 12 Blood Pressure 135/69 130/72 134/77 Pulse Oximetry 96 92 98 12/18/21 08:40 Temperature Pulse Rate 58 L Respiratory Rate 18 Blood Pressure 134/77 Pulse Oximetry 98 MDM - Overdose <Virgil Stafford, DO - Last Filed: 12/21/21 20:15> Lab Data Result diagrams: 12/18/21 02:31 12/18/21 02:31 Labs: Lab Results 12/18/21 12/18/21 12/18/21 Range/Units 02:31 02:31 02:31 WBC 12.8 H (4.5-11.0) X10^3/uL RBC 4.87 (4.5-5.9) X10^6/uL Hgb 13.7 (13.5-17.5) g/dL Hct 42.1 (41-53) % MCV 86.5 (80-100) fL MCH 28.2 (26-34) PG MCHC 32.6 (30-36) % RDW 15.0 H (11.6-14.8) % Plt Count 299 (150-400) X10^3/uL Neut % (Auto) 89.4 H (50-75) % Lymph % (Auto) 8.4 L (25-40) % [place] % (Auto) 1.9 L (3-14) % Eos % (Auto) 0.1 L (2-4) % Baso % (Auto) 0.2 (0-2) % Neut # (Auto) 70783 H (4748-6125) /uL Lymph # (Auto) 1100 (3880-5772) /uL [place] # (Auto) 200 (0-900) /uL Eos # (Auto) 0 (0-450) /uL Baso # (Auto) 0 (0-100) /uL Sodium 141 (137-145) mmol/L Potassium 4.3 (3.4-5.1) mmol/L Chloride 109 H (98-107) mmol/L Carbon Dioxide 26 (22-32) mmol/L BUN 17 (9-20) mg/dL Creatinine 0.71 (0.66-1.25) mg/dL Estimated GFR > 60.0 (>60) mL/min BUN/Creatinine Ratio 23.9 H (6-22) Glucose 125 H (70-100) mg/dL Calcium 9.6 (8.4-10.2) mg/dL Total Bilirubin 0.5 (0.2-1.3) mg/dL AST 29 (17-59) IU/L ALT 27 (<50) IU/L Alkaline Phosphatase 77 (38-126) U/L Total Protein 8.2 (6.3-8.2) g/dL Albumin 4.8 (3.5-5.0) g/dL Globulin 3.4 (1.7-4.1) g/dL Albumin/Globulin Ratio 1.4 (1.0-2.8) Salicylates < 1.0 (<20) mg/dL U Opiates 300ng/mL cut (Negative) Ur Oxycodone Screen (Negative) Urine Methadone Screen (Negative) Acetaminophen < 10 L (10-30) ug/mL Ur Barbiturates Screen (Negative) U Tricyclic Antidepress (Negative) Ur Phencyclidine Scrn (Negative) Ur Amphetamines Screen (Negative) U Methamphetamines Scrn (Negative) Ur MDMA Scrn (Ecstasy) (Negative) U Benzodiazepines Scrn (Negative) Urine Cocaine Screen (Negative) U Marijuana (THC) Screen (Negative) Ethyl Alcohol < 10 ( - 10) mg/dL 12/18/21 Range/Units 03:35 WBC (4.5-11.0) X10^3/uL RBC (4.5-5.9) X10^6/uL Hgb (13.5-17.5) g/dL Hct (41-53) % MCV (80-100) fL MCH (26-34) PG MCHC (30-36) % RDW (11.6-14.8) % Plt Count (150-400) X10^3/uL Neut % (Auto) (50-75) % Lymph % (Auto) (25-40) % [place] % (Auto) (3-14) % Eos % (Auto) (2-4) % Baso % (Auto) (0-2) % Neut # (Auto) (6139-1961) /uL Lymph # (Auto) (4689-6840) /uL [place] # (Auto) (0-900) /uL Eos # (Auto) (0-450) /uL Baso # (Auto) (0-100) /uL Sodium (137-145) mmol/L Potassium (3.4-5.1) mmol/L Chloride (98-107) mmol/L Carbon Dioxide (22-32) mmol/L BUN (9-20) mg/dL Creatinine (0.66-1.25) mg/dL Estimated GFR (>60) mL/min BUN/Creatinine Ratio (6-22) Glucose (70-100) mg/dL Calcium (8.4-10.2) mg/dL Total Bilirubin (0.2-1.3) mg/dL AST (17-59) IU/L ALT (<50) IU/L Alkaline Phosphatase (38-126) U/L Total Protein (6.3-8.2) g/dL Albumin (3.5-5.0) g/dL Globulin (1.7-4.1) g/dL Albumin/Globulin Ratio (1.0-2.8) Salicylates (<20) mg/dL U Opiates 300ng/mL cut Negative (Negative) Ur Oxycodone Screen Negative (Negative) Urine Methadone Screen Negative (Negative) Acetaminophen (10-30) ug/mL Ur Barbiturates Screen Negative (Negative) U Tricyclic Antidepress Positive H (Negative) Ur Phencyclidine Scrn Negative (Negative) Ur Amphetamines Screen Positive H (Negative) U Methamphetamines Scrn Positive H (Negative) Ur MDMA Scrn (Ecstasy) Negative (Negative) U Benzodiazepines Scrn Negative (Negative) Urine Cocaine Screen Negative (Negative) U Marijuana (THC) Screen Negative (Negative) Ethyl Alcohol ( - 10) mg/dL <Carlos A Wright MD - Last Filed: 12/18/21 19:34> Lab Data Labs: Lab Results 12/18/21 12/18/21 12/18/21 Range/Units 02:31 02:31 02:31 WBC 12.8 H (4.5-11.0) X10^3/uL RBC 4.87 (4.5-5.9) X10^6/uL Hgb 13.7 (13.5-17.5) g/dL Hct 42.1 (41-53) % MCV 86.5 (80-100) fL MCH 28.2 (26-34) PG MCHC 32.6 (30-36) % RDW 15.0 H (11.6-14.8) % Plt Count 299 (150-400) X10^3/uL Neut % (Auto) 89.4 H (50-75) % Lymph % (Auto) 8.4 L (25-40) % [place] % (Auto) 1.9 L (3-14) % Eos % (Auto) 0.1 L (2-4) % Baso % (Auto) 0.2 (0-2) % Neut # (Auto) 44790 H (9067-7793) /uL Lymph # (Auto) 1100 (7109-9589) /uL [place] # (Auto) 200 (0-900) /uL Eos # (Auto) 0 (0-450) /uL Baso # (Auto) 0 (0-100) /uL Sodium 141 (137-145) mmol/L Potassium 4.3 (3.4-5.1) mmol/L Chloride 109 H (98-107) mmol/L Carbon Dioxide 26 (22-32) mmol/L BUN 17 (9-20) mg/dL Creatinine 0.71 (0.66-1.25) mg/dL Estimated GFR > 60.0 (>60) mL/min BUN/Creatinine Ratio 23.9 H (6-22) Glucose 125 H (70-100) mg/dL Calcium 9.6 (8.4-10.2) mg/dL Total Bilirubin 0.5 (0.2-1.3) mg/dL AST 29 (17-59) IU/L ALT 27 (<50) IU/L Alkaline Phosphatase 77 (38-126) U/L Total Protein 8.2 (6.3-8.2) g/dL Albumin 4.8 (3.5-5.0) g/dL Globulin 3.4 (1.7-4.1) g/dL Albumin/Globulin Ratio 1.4 (1.0-2.8) Salicylates < 1.0 (<20) mg/dL U Opiates 300ng/mL cut (Negative) Ur Oxycodone Screen (Negative) Urine Methadone Screen (Negative) Acetaminophen < 10 L (10-30) ug/mL Ur Barbiturates Screen (Negative) U Tricyclic Antidepress (Negative) Ur Phencyclidine Scrn (Negative) Ur Amphetamines Screen (Negative) U Methamphetamines Scrn (Negative) Ur MDMA Scrn (Ecstasy) (Negative) U Benzodiazepines Scrn (Negative) Urine Cocaine Screen (Negative) U Marijuana (THC) Screen (Negative) Ethyl Alcohol < 10 ( - 10) mg/dL 12/18/21 Range/Units 03:35 WBC (4.5-11.0) X10^3/uL RBC (4.5-5.9) X10^6/uL Hgb (13.5-17.5) g/dL Hct (41-53) % MCV (80-100) fL MCH (26-34) PG MCHC (30-36) % RDW (11.6-14.8) % Plt Count (150-400) X10^3/uL Neut % (Auto) (50-75) % Lymph % (Auto) (25-40) % [place] % (Auto) (3-14) % Eos % (Auto) (2-4) % Baso % (Auto) (0-2) % Neut # (Auto) (8303-1680) /uL Lymph # (Auto) (2636-5737) /uL [place] # (Auto) (0-900) /uL Eos # (Auto) (0-450) /uL Baso # (Auto) (0-100) /uL Sodium (137-145) mmol/L Potassium (3.4-5.1) mmol/L Chloride (98-107) mmol/L Carbon Dioxide (22-32) mmol/L BUN (9-20) mg/dL Creatinine (0.66-1.25) mg/dL Estimated GFR (>60) mL/min BUN/Creatinine Ratio (6-22) Glucose (70-100) mg/dL Calcium (8.4-10.2) mg/dL Total Bilirubin (0.2-1.3) mg/dL AST (17-59) IU/L ALT (<50) IU/L Alkaline Phosphatase (38-126) U/L Total Protein (6.3-8.2) g/dL Albumin (3.5-5.0) g/dL Globulin (1.7-4.1) g/dL Albumin/Globulin Ratio (1.0-2.8) Salicylates (<20) mg/dL U Opiates 300ng/mL cut Negative (Negative) Ur Oxycodone Screen Negative (Negative) Urine Methadone Screen Negative (Negative) Acetaminophen (10-30) ug/mL Ur Barbiturates Screen Negative (Negative) U Tricyclic Antidepress Positive H (Negative) Ur Phencyclidine Scrn Negative (Negative) Ur Amphetamines Screen Positive H (Negative) U Methamphetamines Scrn Positive H (Negative) Ur MDMA Scrn (Ecstasy) Negative (Negative) U Benzodiazepines Scrn Negative (Negative) Urine Cocaine Screen Negative (Negative) U Marijuana (THC) Screen Negative (Negative) Ethyl Alcohol ( - 10) mg/dL Naloxone at Discharge Patient criteria for naloxone at discharge: Other reason (He may clinically benefit from having this medication available.) Discharge Plan Departure Patient Disposition: Home Clinical Impression: Substance Abuse Instructions: DI for Substance Use Disorder Activity Restrictions/Additional Instructions: Obviously avoid the use of excessive alcohol and drugs. Follow-up with your local doctor for ongoing medical care. I would recommend he discuss detox/rehab with your PCM. Return here as needed. Prescriptions: No Action lithium carbonate 300 mg tablet extended release 600 mg PO BID 0RF hydroxyzine HCl 50 mg tablet 50 mg PO TID PRN (Reason: Anxiety & or itching) 0RF olanzapine 10 mg tablet 10 mg PO BID 0RF Label Comments: Take 1 tablet by mouth 2 times daily for 30 days. Indications Manic Phase of Manic-Depression chlorpromazine 50 mg tablet 50 mg PO Q4HR PRN (Reason: Anxiety) 0RF Label Comments: Take 1 tablet by mouth every 4 hours as needed (anxiety, agitation, hallucinations, insomnia) for up to 120 doses. Indications Psychosis meloxicam 15 mg tablet 15 mg PO DAILY PRN (Reason: pain / discomfort) 0RF acetaminophen 500 mg Tablet 1,000 mg PO Q6H PRN (Reason: fever/pain) 0RF gabapentin 300 mg Capsule 300 mg PO BEDTIME 0RF Stand Alone Forms: Naloxone Standing Order JOSE CARLOS
--- NOTE | 2021-12-18 02:24 | DI.CT.S_ITS ---
PROCEDURE: CT LUMBAR SPINE WO CON INDICATIONS: severe pain TECHNIQUE: Noncontrast 3 mm thick sections acquired from the T12 level to the sacrum. Sagittal and coronal reformats were constructed. For radiation dose reduction, the following was used: automated exposure control. COMPARISON: None. FINDINGS: Image quality: Excellent. Bones: There is normal bony alignment. No acute vertebral body compression fractures. Irregular sclerosis noted in the right ala of the sacrum adjacent to the inferior margin of the right SI joint. Mild bilateral SI joint osteoarthritis. No pars defects. Spine degenerative disc disease and facet arthropathy. Soft tissues: No retroperitoneal masses or hematomas. Visualized aorta is normal in caliber. IMPRESSION: 1. No fracture. No acute osseous lesion. If symptoms and/or clinical suspicion for pathology persists, evaluation with MRI should be considered for further assessment. 1. Irregular sclerosis involving the right ala of the sacrum adjacent to the inferior margin of the right SI joint. Finding may represent sequela of osteoarthritis or remote trauma, however acute process can not be excluded by CT imaging. Recommend MRI of the pelvis (osseous protocol) for additional evaluation. Dictated by: Melanie Rubin MD, PhD on 12/18/2021 at 7:47 Approved by: Melanie Rubin MD, PhD on 12/18/2021 at 7:52
[2021-12-18 02:48] LABS: Add Manual Diff / Slide Review NO; Basophils Absolute Auto 0 /uL (0-100); Basophils Percent Auto 0.2 % (0-2); Eosinophils Absolute Auto 0 /uL (0-450); Eosinophils Percent Auto 0.1 % (2-4); Hematocrit 42.1 % (41-53); Hemoglobin 13.7 g/dL (13.5-17.5); Lymphocytes Absolute Auto 1100 /uL (1100-4500); Lymphocytes Percent Auto 8.4 % (25-40); Mean Corpuscular HGB Conc 32.6 % (30-36); Mean Corpuscular Hemoglobin 28.2 PG (26-34); Mean Corpuscular Volume 86.5 fL (80-100); Monocytes Absolute Auto 200 /uL (0-900); Monocytes Percent Auto 1.9 % (3-14); Neutrophils Absolute Auto 11400 /uL (1500-7000); Neutrophils Percent Auto 89.4 % (50-75); Platelet Count 299 X10^3/uL (150-400); Red Blood Cell Count 4.87 X10^6/uL (4.5-5.9); White Blood Cell Count 12.8 X10^3/uL (4.5-11.0)
[2021-12-18 03:24] LABS: Ethanol (ETOH) < 10 mg/dL
[2021-12-18 03:25] LABS: Acetaminophen < 10 ug/mL (10-30); Alanine Aminotransferase 27 IU/L (<50); Albumin 4.8 g/dL (3.5-5.0); Albumin Globulin Ratio 1.4 (1.0-2.8); Alkaline Phosphatase 77 U/L (38-126); Aspartate Aminotransferase 29 IU/L (17-59); BUN Creatinine Ratio 23.9 (6-22); Bilirubin Total 0.5 mg/dL (0.2-1.3); Blood Urea Nitrogen 17 mg/dL (9-20); Calcium 9.6 mg/dL (8.4-10.2); Carbon Dioxide 26 mmol/L (22-32); Chloride 109 mmol/L (98-107); Estimated Glomerular Filt Rate > 60.0 mL/min (>60); Globulin 3.4 g/dL (1.7-4.1); Glucose 125 mg/dL (70-100); HEMOLYSIS < 15 (0-50); Potassium 4.3 mmol/L (3.4-5.1); Salicylate < 1.0 mg/dL (<20); Sodium 141 mmol/L (137-145); Total Protein 8.2 g/dL (6.3-8.2)
[2021-12-18 04:25] LABS: Ur Creatinine 20 (Normal); Ur Specific Gravity 1.015 (Normal); Urine pH 5 (Normal)
[2021-12-18 04:26] LABS: UR Morphine/Opiate cutoff 300 Negative (Negative); Urine Amphetamines Positive (Negative); Urine Barbiturates Negative (Negative); Urine Benzodiazepines Negative (Negative); Urine Cocaine Negative (Negative); Urine MDMA Negative (Negative); Urine Methadone Negative (Negative); Urine Methamphetamines Positive (Negative); Urine Oxycodone Negative (Negative); Urine Phencyclidine Negative (Negative); Urine Tetrahydrocannabinol Negative (Negative); Urine Tricyclic Antidepressant Positive (Negative)
--- NOTE | 2021-12-18 09:11 | PC.NURSE ---
arousable to voice, ambulatory to restroom independantly with steady gate. resp even unlabored and. piv removed.
== END 2021-12-18 09:45 | disposition home or self-care (01) ==
PROVIDERS: Emergency Provider Emergency Medicine
DX: F19.10 Other psychoactive substance abuse, uncomplicated (principal); F17.200 Nicotine dependence, unspecified, uncomplicated
CPT/HCPCS: 70450; 72125; 72131; 80053; 80305; 80320; 80329; 85025; 99284; G0480

== ENCOUNTER 2021-12-19 01:01 | Emergency (ER) | payer MEDICARE, MEDICAID, SELFPAY ==
[2021-12-19] VITALS (8 sets, daily range): BP systolic 118–178; BP diastolic 70–91; PULSE 72–98; RESP 18–21; TEMP 36.6; O2SAT 97–100; BMI 28.4
--- NOTE | 2021-12-19 01:12 | ED.PSYCH ---
HPI - Psych <Jazmín Sullivan DO - Last Filed: 12/20/21 01:00> General Chief Complaint: Psychiatric Symptoms Stated Complaint: suicidal thoughts Time Seen by Provider: 12/19/21 01:10 History of Present Illness HPI Narrative: Patient is a 51-year-old male with history of bipolar, anxiety, schizophrenia, substance abuse including methamphetamine presenting today with suicidal ideations. He was actually seen evaluated here last night Was found unresponsive lying on the ground surrounded by of alcohol bottles. He was observed in the emergency department for numerous hours and released this morning. He now presents stating that he wants to harm himself cutting his wrist and his neck. He states that the stump blower in [place] make him suicidal. Patient is homeless he is aware that he is in [facility] and [facility]. He is unable to provide much other history. He does admit to hearing voices. He is obviously hearing voices in the room. No evidence of harm at this time. He is overall a very poor historian. Admits to smoking meth mixers which include at least methamphetamine an acid. Related Data Home Medications Medication Instructions Recorded Confirmed hydroxyzine HCl 50 mg tablet 50 mg PO TID PRN 09/05/21 12/19/21 lithium carbonate 300 mg 600 mg PO BID 09/05/21 12/19/21 tablet,extended release acetaminophen 500 mg tablet 1,000 mg PO Q6H PRN 12/19/21 12/19/21 chlorpromazine 50 mg tablet 50 mg PO Q4HR PRN 12/19/21 12/19/21 gabapentin 300 mg capsule 300 mg PO BEDTIME 12/19/21 12/19/21 meloxicam 15 mg tablet 15 mg PO DAILY PRN 12/19/21 12/19/21 olanzapine 10 mg tablet 10 mg PO BID 12/19/21 12/19/21 Allergies Allergy/AdvReac Type Severity Reaction Status Date / Time No Known Drug Allergies Allergy Verified 12/19/21 13:08 Review of Systems <DO Aida Rajan Last Filed: 12/20/21 01:00> Review of Systems ROS Unobtainable: Unobtainable due to mental condition Patient History <DO Aida Rajan Last Filed: 12/20/21 01:00> Medical History Methamphetamine use Schizophrenia Social History Smoking Status: Current every day smoker Smoking Status: Current every day smoker alcohol intake frequency: other Substance Use Type: marijuana and methamphetamine Exam <Jazmín Sullivan DO - Last Filed: 12/20/21 01:00> Initial Vital Signs Initial Vital Signs: Vital Signs Temperature 97.9 F 12/19/21 01:05 Pulse Rate 88 12/19/21 01:05 Respiratory Rate 18 12/19/21 01:05 Blood Pressure 164/91 H 12/19/21 01:05 Pulse Oximetry 100 12/19/21 01:05 GENERAL: 51 year old awake alert 51-year-old male, discharge full HEENT: Head atraumatic,EOMI, pupils reactive, face symmetric, moist mucous membranes CARDIOVASCULAR: Regular rate and rhythm without murmurs, rubs or gallops. RESPIRATORY: Breath sounds equal bilaterally, no wheezes rales or rhonchi. ABDOMEN: Soft, nontender. Normoactive bowel sounds all 4 quadrants. No guarding or rebound. EXTREMITIES: Normal range of motion, no clubbing or edema. Neurovascularly intact NEUROLOGICAL: A no x3 moving all extremities SKIN: Warm, dry, no laceration, no petechiae, no rashes or lesions. No laceration or injury Psych Appearance: disheveled Mental Status: other Speech and Movement: pressured speech and restless Mood: other Attitude: cooperative Thought Process: illogical Thought Content: suicidality Judgment: poor <Fabiana Allen MD - Last Filed: 12/20/21 06:36> Initial Vital Signs Initial Vital Signs: Vital Signs Temperature 97.9 F 12/19/21 01:05 Pulse Rate 88 12/19/21 01:05 Respiratory Rate 18 12/19/21 01:05 Blood Pressure 164/91 H 12/19/21 01:05 Pulse Oximetry 100 12/19/21 01:05 Course <Jazmín Sullivan DO - Last Filed: 12/20/21 01:00> Course Course Narrative: 730 am Care is assumed from Dr. Sullivan. Patient is homeless, has a history of polysubstance abuse with Significant methamphetamine last night also has a history of bipolar disorder is on lithium gabapentin hydroxyzine and olanzapine.He has a history of apparently back pain was recently given a methylprednisolone Dosepak he has baclofen and cyclobenzaprine. He was given 10 mg a will and is a Pean into mg of Ativan and did not sleep kids. He is continuing to actively hallucinate and respond to internal stimuli. He remains agitated due to internal stimuli and is repeatedly actively masturbating in the room. On my initial discussion he is fully dressed all of his possessions are at the bedside all of his medications are at the bedside and he is asking if he should take some of them. He is cooperative. When asked to undress to change in to psychiatric describes and move over to room 13 he is cooperative. Once undressed regard in appropriate and safe for scrubs possessions are placed in locked security he is escorted to room 13 and then rechecked 5 minutes later he is no longer in the room. We have asked security to do a brief local sweep of the area and if we do not find him we will ask police to become involved in as well. At this point he does not have shoes or socks and simply has on scrubs and it is quite chilly outside. Given his history of bipolar disorder and significant response to internal stimuli he still needs to metabolize his methamphetamine, and need to be re-evaluated. It does seem like his behavior is escalating and I am concerned that at his baseline he is gravely disabled and may need penitentiary. He tells me he is suicidal as he is talking to other people in the room whom I am unable to see. 759am once patient is returned to the emergency department will need to be an locked door restraints for his own safety. Orders Ordered: Discontinued Medications Acetaminophen (Acetaminophen 325 Mg Tablet) 975 mg PO Q6HR PRN PRN Reason: Pain, Moderate (4-6) Chlorpromazine HCl (Chlorpromazine 25 Mg Tablet) 50 mg PO Q4HR PRN PRN Reason: Anxiety Last Admin: 12/19/21 21:58 Dose: 50 mg Documented by: Admin: 12/19/21 15:36 Dose: 50 mg Documented by: JENN Gabapentin (Gabapentin 300 Mg Capsule) 300 mg PO BEDTIME ALEXIS Last Admin: 12/19/21 22:01 Dose: 300 mg Documented by: LIVIER Hydroxyzine Pamoate (Hydroxyzine Pamoate 25 Mg Capsule) 50 mg PO TID PRN PRN Reason: anxiety & or itching Metuchen Carbonate (Metuchen 150 Mg Ir Capsule) 600 mg PO NOW ONE Stop: 12/19/21 13:08 Last Admin: 12/19/21 13:29 Dose: 600 mg Documented by: JENN Metuchen Carbonate (Metuchen 300 Mg Ir Capsule) 600 mg PO BID [facility] Last Admin: 12/19/21 21:57 Dose: 600 mg Documented by: LIVIER Lorazepam (Lorazepam 2 Mg/Ml Inj) 2 mg IM NOW ONE Stop: 12/19/21 02:33 Last Admin: 12/19/21 02:37 Dose: 2 mg Documented by: JORDY Lorazepam (Lorazepam 0.5 Mg Tablet) 2 mg PO NOW ONE Stop: 12/19/21 08:08 Last Admin: 12/19/21 09:01 Dose: 2 mg Documented by: ALEXANDER Olanzapine (Olanzapine Odt 10 Mg Tab) 10 mg PO NOW ONE Stop: 12/19/21 02:18 Last Admin: 12/19/21 02:25 Dose: 10 mg Documented by: ARIADNA Olanzapine (Olanzapine Odt 10 Mg Tab) 20 mg PO NOW ONE Stop: 12/19/21 08:08 Last Admin: 12/19/21 09:04 Dose: 20 mg Documented by: ALEXANDER Olanzapine (Olanzapine Odt 10 Mg Tab) 10 mg PO BID [facility] Last Admin: 12/19/21 21:56 Dose: 10 mg Documented by: LIVIER Vital Signs Vital signs: Vital Signs - 8 hr 12/19/21 21:58 Pulse Rate 72 Blood Pressure 118/70 Pulse Oximetry 99 <Fabiana Allen MD - Last Filed: 12/20/21 06:36> Course Course Narrative: 730 am Care is assumed from Dr. Rajiv clayton. Patient is homeless, has a history of polysubstance abuse with Significant methamphetamine last night also has a history of bipolar disorder is on lithium gabapentin hydroxyzine and olanzapine.He has a history of apparently back pain was recently given a methylprednisolone Dosepak he has baclofen and cyclobenzaprine. He was given 10 mg a will and is a Pean into mg of Ativan and did not sleep kids. He is continuing to actively hallucinate and respond to internal stimuli. He remains agitated due to internal stimuli and is repeatedly actively masturbating in the room. On my initial discussion he is fully dressed all of his possessions are at the bedside all of his medications are at the bedside and he is asking if he should take some of them. He is cooperative. When asked to undress to change in to psychiatric describes and move over to room 13 he is cooperative. Once undressed regard in appropriate and safe for scrubs possessions are placed in locked security he is escorted to room 13 and then rechecked 5 minutes later he is no longer in the room. We have asked security to do a brief local sweep of the area and if we do not find him we will ask police to become involved in as well. At this point he does not have shoes or socks and simply has on scrubs and it is quite chilly outside. Given his history of bipolar disorder and significant response to internal stimuli he still needs to metabolize his methamphetamine, and need to be re-evaluated. It does seem like his behavior is escalating and I am concerned that at his baseline he is gravely disabled and may need penitentiary. He tells me he is suicidal as he is talking to other people in the room whom I am unable to see. 759am once patient is returned to the emergency department will need to be an locked door restraints for his own safety. Orders Ordered: Discontinued Medications Acetaminophen (Acetaminophen 325 Mg Tablet) 975 mg PO Q6HR PRN PRN Reason: Pain, Moderate (4-6) Chlorpromazine HCl (Chlorpromazine 25 Mg Tablet) 50 mg PO Q4HR PRN PRN Reason: Anxiety Last Admin: 12/19/21 21:58 Dose: 50 mg Documented by: Admin: 12/19/21 15:36 Dose: 50 mg Documented by: JENN Gabapentin (Gabapentin 300 Mg Capsule) 300 mg PO BEDTIME ALEXIS Last Admin: 12/19/21 22:01 Dose: 300 mg Documented by: LIVIER Hydroxyzine Pamoate (Hydroxyzine Pamoate 25 Mg Capsule) 50 mg PO TID PRN PRN Reason: anxiety & or itching Metuchen Carbonate (Metuchen 150 Mg Ir Capsule) 600 mg PO NOW ONE Stop: 12/19/21 13:08 Last Admin: 12/19/21 13:29 Dose: 600 mg Documented by: JENN Metuchen Carbonate (Metuchen 300 Mg Ir Capsule) 600 mg PO BID ALEXIS Last Admin: 12/19/21 21:57 Dose: 600 mg Documented by: LIVIER Lorazepam (Lorazepam 2 Mg/Ml Inj) 2 mg IM NOW ONE Stop: 12/19/21 02:33 Last Admin: 12/19/21 02:37 Dose: 2 mg Documented by: OJRDY Lorazepam (Lorazepam 0.5 Mg Tablet) 2 mg PO NOW ONE Stop: 12/19/21 08:08 Last Admin: 12/19/21 09:01 Dose: 2 mg Documented by: ALEXANDER Olanzapine (Olanzapine Odt 10 Mg Tab) 10 mg PO NOW ONE Stop: 12/19/21 02:18 Last Admin: 12/19/21 02:25 Dose: 10 mg Documented by: ARIADNA Olanzapine (Olanzapine Odt 10 Mg Tab) 20 mg PO NOW ONE Stop: 12/19/21 08:08 Last Admin: 12/19/21 09:04 Dose: 20 mg Documented by: ALEXANDER Olanzapine (Olanzapine Odt 10 Mg Tab) 10 mg PO BID [facility] Last Admin: 12/19/21 21:56 Dose: 10 mg Documented by: LIVIER Vital Signs Vital signs: Vital Signs - 8 hr 12/19/21 21:58 Pulse Rate 72 Blood Pressure 118/70 Pulse Oximetry 99 MDM - Psych <Jazmín Sullivan DO - Last Filed: 12/20/21 01:00> Lab Data Result diagrams: 12/19/21 01:34 12/19/21 01:34 Labs: Lab Results 12/19/21 12/19/21 12/19/21 Range/Units 01:20 01:20 01:25 WBC (4.5-11.0) X10^3/uL RBC (4.5-5.9) X10^6/uL Hgb (13.5-17.5) g/dL Hct (41-53) % MCV (80-100) fL MCH (26-34) PG MCHC (30-36) % RDW (11.6-14.8) % Plt Count (150-400) X10^3/uL Neut % (Auto) (50-75) % Lymph % (Auto) (25-40) % [place] % (Auto) (3-14) % Eos % (Auto) (2-4) % Baso % (Auto) (0-2) % Neut # (Auto) (7480-5859) /uL Lymph # (Auto) (4024-3032) /uL [place] # (Auto) (0-900) /uL Eos # (Auto) (0-450) /uL Baso # (Auto) (0-100) /uL Sodium (137-145) mmol/L Potassium (3.4-5.1) mmol/L Chloride (98-107) mmol/L Carbon Dioxide (22-32) mmol/L BUN (9-20) mg/dL Creatinine (0.66-1.25) mg/dL Estimated GFR (>60) mL/min BUN/Creatinine Ratio (6-22) Glucose (70-100) mg/dL Calcium (8.4-10.2) mg/dL Total Bilirubin (0.2-1.3) mg/dL AST (17-59) IU/L ALT (<50) IU/L Alkaline Phosphatase (38-126) U/L Total Protein (6.3-8.2) g/dL Albumin (3.5-5.0) g/dL Globulin (1.7-4.1) g/dL Albumin/Globulin Ratio (1.0-2.8) TSH (0.47-4.68) uIU/mL Urine Color Yellow Urine Appearance Clear Urine pH 6.5 (4.5-8.0) Ur Specific [place] 1.020 (1.000-1.035) Urine Protein Negative (Negative) Urine Glucose (UA) Negative (Negative) g/dL Urine Ketones Negative (NEGATIVE) Urine Occult Blood Trace-lysed (Negative) Urine Nitrate Negative (Negative) Urine Bilirubin Negative (NEGATIVE) Urine Urobilinogen 0.2 (0.2) E.U./dL Ur Leukocyte Esterase Negative (NEGATIVE) U Opiates 300ng/mL cut Negative (Negative) Ur Oxycodone Screen Negative (Negative) Urine Methadone Screen Negative (Negative) Ur Barbiturates Screen Negative (Negative) U Tricyclic Antidepress Positive H (Negative) Ur Phencyclidine Scrn Negative (Negative) Ur Amphetamines Screen Positive H (Negative) U Methamphetamines Scrn Positive H (Negative) Ur MDMA Scrn (Ecstasy) Negative (Negative) U Benzodiazepines Scrn Negative (Negative) Metuchen (0.6-1.2) mmol/L Urine Cocaine Screen Negative (Negative) U Marijuana (THC) Screen Negative (Negative) Ethyl Alcohol ( - 10) mg/dL SARS-CoV-2 (PCR) Negative (Negative) 12/19/21 12/19/21 12/19/21 Range/Units 01:34 01:34 01:34 WBC 13.5 H (4.5-11.0) X10^3/uL RBC 4.84 (4.5-5.9) X10^6/uL Hgb 13.7 (13.5-17.5) g/dL Hct 41.0 (41-53) % MCV 84.7 (80-100) fL MCH 28.2 (26-34) PG MCHC 33.3 (30-36) % RDW 14.9 H (11.6-14.8) % Plt Count 299 (150-400) X10^3/uL Neut % (Auto) 79.0 H (50-75) % Lymph % (Auto) 15.3 L (25-40) % [place] % (Auto) 4.8 (3-14) % Eos % (Auto) 0.4 L (2-4) % Baso % (Auto) 0.5 (0-2) % Neut # (Auto) 36170 H (4486-7438) /uL Lymph # (Auto) 2100 (9201-6816) /uL [place] # (Auto) 600 (0-900) /uL Eos # (Auto) 0 (0-450) /uL Baso # (Auto) 100 (0-100) /uL Sodium 140 (137-145) mmol/L Potassium 3.6 (3.4-5.1) mmol/L Chloride 108 H (98-107) mmol/L Carbon Dioxide 27 (22-32) mmol/L BUN 13 (9-20) mg/dL Creatinine 0.58 L (0.66-1.25) mg/dL Estimated GFR > 60.0 (>60) mL/min BUN/Creatinine Ratio 22.4 H (6-22) Glucose 111 H (70-100) mg/dL Calcium 9.5 (8.4-10.2) mg/dL Total Bilirubin 0.5 (0.2-1.3) mg/dL AST 22 (17-59) IU/L ALT 24 (<50) IU/L Alkaline Phosphatase 73 (38-126) U/L Total Protein 7.7 (6.3-8.2) g/dL Albumin 4.5 (3.5-5.0) g/dL Globulin 3.2 (1.7-4.1) g/dL Albumin/Globulin Ratio 1.4 (1.0-2.8) TSH 1.56 (0.47-4.68) uIU/mL Urine Color Urine Appearance Urine pH (4.5-8.0) Ur Specific [place] (1.000-1.035) Urine Protein (Negative) Urine Glucose (UA) (Negative) g/dL Urine Ketones (NEGATIVE) Urine Occult Blood (Negative) Urine Nitrate (Negative) Urine Bilirubin (NEGATIVE) Urine Urobilinogen (0.2) E.U./dL Ur Leukocyte Esterase (NEGATIVE) U Opiates 300ng/mL cut (Negative) Ur Oxycodone Screen (Negative) Urine Methadone Screen (Negative) Ur Barbiturates Screen (Negative) U Tricyclic Antidepress (Negative) Ur Phencyclidine Scrn (Negative) Ur Amphetamines Screen (Negative) U Methamphetamines Scrn (Negative) Ur MDMA Scrn (Ecstasy) (Negative) U Benzodiazepines Scrn (Negative) Metuchen (0.6-1.2) mmol/L Urine Cocaine Screen (Negative) U Marijuana (THC) Screen (Negative) Ethyl Alcohol < 10 ( - 10) mg/dL SARS-CoV-2 (PCR) (Negative) 12/19/21 Range/Units 07:31 WBC (4.5-11.0) X10^3/uL RBC (4.5-5.9) X10^6/uL Hgb (13.5-17.5) g/dL Hct (41-53) % MCV (80-100) fL MCH (26-34) PG MCHC (30-36) % RDW (11.6-14.8) % Plt Count (150-400) X10^3/uL Neut % (Auto) (50-75) % Lymph % (Auto) (25-40) % [place] % (Auto) (3-14) % Eos % (Auto) (2-4) % Baso % (Auto) (0-2) % Neut # (Auto) (1850-2114) /uL Lymph # (Auto) (0192-3494) /uL [place] # (Auto) (0-900) /uL Eos # (Auto) (0-450) /uL Baso # (Auto) (0-100) /uL Sodium (137-145) mmol/L Potassium (3.4-5.1) mmol/L Chloride (98-107) mmol/L Carbon Dioxide (22-32) mmol/L BUN (9-20) mg/dL Creatinine (0.66-1.25) mg/dL Estimated GFR (>60) mL/min BUN/Creatinine Ratio (6-22) Glucose (70-100) mg/dL Calcium (8.4-10.2) mg/dL Total Bilirubin (0.2-1.3) mg/dL AST (17-59) IU/L ALT (<50) IU/L Alkaline Phosphatase (38-126) U/L Total Protein (6.3-8.2) g/dL Albumin (3.5-5.0) g/dL Globulin (1.7-4.1) g/dL Albumin/Globulin Ratio (1.0-2.8) TSH (0.47-4.68) uIU/mL Urine Color Urine Appearance Urine pH (4.5-8.0) Ur Specific [place] (1.000-1.035) Urine Protein (Negative) Urine Glucose (UA) (Negative) g/dL Urine Ketones (NEGATIVE) Urine Occult Blood (Negative) Urine Nitrate (Negative) Urine Bilirubin (NEGATIVE) Urine Urobilinogen (0.2) E.U./dL Ur Leukocyte Esterase (NEGATIVE) U Opiates 300ng/mL cut (Negative) Ur Oxycodone Screen (Negative) Urine Methadone Screen (Negative) Ur Barbiturates Screen (Negative) U Tricyclic Antidepress (Negative) Ur Phencyclidine Scrn (Negative) Ur Amphetamines Screen (Negative) U Methamphetamines Scrn (Negative) Ur MDMA Scrn (Ecstasy) (Negative) U Benzodiazepines Scrn (Negative) Metuchen 0.8 (0.6-1.2) mmol/L Urine Cocaine Screen (Negative) U Marijuana (THC) Screen (Negative) Ethyl Alcohol ( - 10) mg/dL SARS-CoV-2 (PCR) (Negative) MDM Narrative Medical decision making narrative: Patient has escalated in the emergency department yelling and screaming at things not in the room. He is mumbling unintelligible words. He is given a dose of Zyprexa which he willingly takes. He says he actually thinks he has had this before. He continues to talk to hallucinations. Becoming quite loud. He is given 1 dose of Ativan to help with. At no time is he aggressive towards staff. Simply lying in bed yelling at things that are not there. JONATHAN report shows that he does have history of bipolar and schizophrenia. However recent use of methamphetamine. He had to wait for methamphetamine to clear system to be re-evaluated. Nursing staff does re-questioning him and he is not suicidal at this time. But he still obviously has many hallucinations. Zyprexa Ativan combination started wearing off around 630 in the morning. Previous visits do not indicate that he has had any hallucinations is this is new within the last [address] out [address]. Allen [id number] After an additional 20 mg of Zyprexa and 2 mg of oral Ativan patient is no longer actively hallucinating. He states that he is not suicidal. He still seems quite disorganized. He states the last time he was hospitalized for his schizophrenia bipolar type was at [facility] but is unsure time frame. He was seen on the with complaints of back pain and is not currently complaining of back pain. At this point he is medically cleared and seems to have metabolized most of his methamphetamine. I am still concerned that he is gravely disabled. I am concerned that it has taken such large doses of Zyprexa to get his symptoms under control and do not think that he has the capacity to manipulate medications as needed. Metuchen level returned and was appropriate. Will give him his scheduled 600 mg of morning lithium. As his back is no longer bothering him well hold his recently prescribed methylprednisolone (it looks like he took a single day of this). Will ask social media sr strategy manager to further evaluate\ 1pm social media sr strategy manager had a chance to chat with this gentleman. He typically is in [facility], has a long history with [facility], he has had multiple inpatient stays in the past and multiple outpatient resources checking up on him. Notes from previous stays at indicated if he seems to be escalating that DCR may be appropriate. At this point he actually is voluntary and would agree to stay in a psychiatric facility. Our social media sr strategy manager will begin to make phone calls to see what type of bed availability there is. If he chooses to no longer be voluntary, will likely need DCR element. 2pm patient states he would like to leave. AGENT [employer] is notified and she has called DCR 445pm DCR in the departement for further evaluation 6pm patient has been formally detained and has a bed available at [facility]. He can leave [facility] at 10:00 p.m. and inlet transport has been arranged. DCR was concerned that he was beginning to become a bit more agitated. Does have both hydroxyzine and chlorpromazine as needed every 4 hours as part of his routine medications. Was given doses of both at 4:30 a.m. this afternoon and will be repeated at 8:30 a.m. this evening. <Fabiana Allen MD - Last Filed: 12/20/21 06:36> Lab Data Labs: Lab Results 12/19/21 12/19/21 12/19/21 Range/Units 01:20 01:20 01:25 WBC (4.5-11.0) X10^3/uL RBC (4.5-5.9) X10^6/uL Hgb (13.5-17.5) g/dL Hct (41-53) % MCV (80-100) fL MCH (26-34) PG MCHC (30-36) % RDW (11.6-14.8) % Plt Count (150-400) X10^3/uL Neut % (Auto) (50-75) % Lymph % (Auto) (25-40) % [place] % (Auto) (3-14) % Eos % (Auto) (2-4) % Baso % (Auto) (0-2) % Neut # (Auto) (1758-2613) /uL Lymph # (Auto) (4627-1750) /uL [place] # (Auto) (0-900) /uL Eos # (Auto) (0-450) /uL Baso # (Auto) (0-100) /uL Sodium (137-145) mmol/L Potassium (3.4-5.1) mmol/L Chloride (98-107) mmol/L Carbon Dioxide (22-32) mmol/L BUN (9-20) mg/dL Creatinine (0.66-1.25) mg/dL Estimated GFR (>60) mL/min BUN/Creatinine Ratio (6-22) Glucose (70-100) mg/dL Calcium (8.4-10.2) mg/dL Total Bilirubin (0.2-1.3) mg/dL AST (17-59) IU/L ALT (<50) IU/L Alkaline Phosphatase (38-126) U/L Total Protein (6.3-8.2) g/dL Albumin (3.5-5.0) g/dL Globulin (1.7-4.1) g/dL Albumin/Globulin Ratio (1.0-2.8) TSH (0.47-4.68) uIU/mL Urine Color Yellow Urine Appearance Clear Urine pH 6.5 (4.5-8.0) Ur Specific [place] 1.020 (1.000-1.035) Urine Protein Negative (Negative) Urine Glucose (UA) Negative (Negative) g/dL Urine Ketones Negative (NEGATIVE) Urine Occult Blood Trace-lysed (Negative) Urine Nitrate Negative (Negative) Urine Bilirubin Negative (NEGATIVE) Urine Urobilinogen 0.2 (0.2) E.U./dL Ur Leukocyte Esterase Negative (NEGATIVE) U Opiates 300ng/mL cut Negative (Negative) Ur Oxycodone Screen Negative (Negative) Urine Methadone Screen Negative (Negative) Ur Barbiturates Screen Negative (Negative) U Tricyclic Antidepress Positive H (Negative) Ur Phencyclidine Scrn Negative (Negative) Ur Amphetamines Screen Positive H (Negative) U Methamphetamines Scrn Positive H (Negative) Ur MDMA Scrn (Ecstasy) Negative (Negative) U Benzodiazepines Scrn Negative (Negative) [place]uc[place] (0.6-1.2) mmol/L Urine Cocaine Screen Negative (Negative) U Marijuana (THC) Screen Negative (Negative) Ethyl Alcohol ( - 10) mg/dL SARS-CoV-2 (PCR) Negative (Negative) 12/19/21 12/19/21 12/19/21 Range/Units 01:34 01:34 01:34 WBC 13.5 H (4.5-11.0) X10^3/uL RBC 4.84 (4.5-5.9) X10^6/uL Hgb 13.7 (13.5-17.5) g/dL Hct 41.0 (41-53) % MCV 84.7 (80-100) fL MCH 28.2 (26-34) PG MCHC 33.3 (30-36) % RDW 14.9 H (11.6-14.8) % Plt Count 299 (150-400) X10^3/uL Neut % (Auto) 79.0 H (50-75) % Lymph % (Auto) 15.3 L (25-40) % [place] % (Auto) 4.8 (3-14) % Eos % (Auto) 0.4 L (2-4) % Baso % (Auto) 0.5 (0-2) % Neut # (Auto) 16037 H (7855-8225) /uL Lymph # (Auto) 2100 (3660-2424) /uL [place] # (Auto) 600 (0-900) /uL Eos # (Auto) 0 (0-450) /uL Baso # (Auto) 100 (0-100) /uL Sodium 140 (137-145) mmol/L Potassium 3.6 (3.4-5.1) mmol/L Chloride 108 H (98-107) mmol/L Carbon Dioxide 27 (22-32) mmol/L BUN 13 (9-20) mg/dL Creatinine 0.58 L (0.66-1.25) mg/dL Estimated GFR > 60.0 (>60) mL/min BUN/Creatinine Ratio 22.4 H (6-22) Glucose 111 H (70-100) mg/dL Calcium 9.5 (8.4-10.2) mg/dL Total Bilirubin 0.5 (0.2-1.3) mg/dL AST 22 (17-59) IU/L ALT 24 (<50) IU/L Alkaline Phosphatase 73 (38-126) U/L Total Protein 7.7 (6.3-8.2) g/dL Albumin 4.5 (3.5-5.0) g/dL Globulin 3.2 (1.7-4.1) g/dL Albumin/Globulin Ratio 1.4 (1.0-2.8) TSH 1.56 (0.47-4.68) uIU/mL Urine Color Urine Appearance Urine pH (4.5-8.0) Ur Specific [place] (1.000-1.035) Urine Protein (Negative) Urine Glucose (UA) (Negative) g/dL Urine Ketones (NEGATIVE) Urine Occult Blood (Negative) Urine Nitrate (Negative) Urine Bilirubin (NEGATIVE) Urine Urobilinogen (0.2) E.U./dL Ur Leukocyte Esterase (NEGATIVE) U Opiates 300ng/mL cut (Negative) Ur Oxycodone Screen (Negative) Urine Methadone Screen (Negative) Ur Barbiturates Screen (Negative) U Tricyclic Antidepress (Negative) Ur Phencyclidine Scrn (Negative) Ur Amphetamines Screen (Negative) U Methamphetamines Scrn (Negative) Ur MDMA Scrn (Ecstasy) (Negative) U Benzodiazepines Scrn (Negative) [place] (0.6-1.2) mmol/L Urine Cocaine Screen (Negative) U Marijuana (THC) Screen (Negative) Ethyl Alcohol < 10 ( - 10) mg/dL SARS-CoV-2 (PCR) (Negative) 12/19/21 Range/Units 07:31 WBC (4.5-11.0) X10^3/uL RBC (4.5-5.9) X10^6/uL Hgb (13.5-17.5) g/dL Hct (41-53) % MCV (80-100) fL MCH (26-34) PG MCHC (30-36) % RDW (11.6-14.8) % Plt Count (150-400) X10^3/uL Neut % (Auto) (50-75) % Lymph % (Auto) (25-40) % [place] % (Auto) (3-14) % Eos % (Auto) (2-4) % Baso % (Auto) (0-2) % Neut # (Auto) (2752-1507) /uL Lymph # (Auto) (3313-2894) /uL [place] # (Auto) (0-900) /uL Eos # (Auto) (0-450) /uL Baso # (Auto) (0-100) /uL Sodium (137-145) mmol/L Potassium (3.4-5.1) mmol/L Chloride (98-107) mmol/L Carbon Dioxide (22-32) mmol/L BUN (9-20) mg/dL Creatinine (0.66-1.25) mg/dL Estimated GFR (>60) mL/min BUN/Creatinine Ratio (6-22) Glucose (70-100) mg/dL Calcium (8.4-10.2) mg/dL Total Bilirubin (0.2-1.3) mg/dL AST (17-59) IU/L ALT (<50) IU/L Alkaline Phosphatase (38-126) U/L Total Protein (6.3-8.2) g/dL Albumin (3.5-5.0) g/dL Globulin (1.7-4.1) g/dL Albumin/Globulin Ratio (1.0-2.8) TSH (0.47-4.68) uIU/mL Urine Color Urine Appearance Urine pH (4.5-8.0) Ur Specific [place] (1.000-1.035) Urine Protein (Negative) Urine Glucose (UA) (Negative) g/dL Urine Ketones (NEGATIVE) Urine Occult Blood (Negative) Urine Nitrate (Negative) Urine Bilirubin (NEGATIVE) Urine Urobilinogen (0.2) E.U./dL Ur Leukocyte Esterase (NEGATIVE) U Opiates 300ng/mL cut (Negative) Ur Oxycodone Screen (Negative) Urine Methadone Screen (Negative) Ur Barbiturates Screen (Negative) U Tricyclic Antidepress (Negative) Ur Phencyclidine Scrn (Negative) Ur Amphetamines Screen (Negative) U Methamphetamines Scrn (Negative) Ur MDMA Scrn (Ecstasy) (Negative) U Benzodiazepines Scrn (Negative) [place] 0.8 (0.6-1.2) mmol/L Urine Cocaine Screen (Negative) U Marijuana (THC) Screen (Negative) Ethyl Alcohol ( - 10) mg/dL SARS-CoV-2 (PCR) (Negative) ECG Data Interpretation: Sinus rhythm rate of 79 Nonspecific intraventricular conduction delay QTC of 442, in the normal range MDM Narrative Medical decision making narrative: Patient has escalated in the emergency department yelling and screaming at things not in the room. He is mumbling unintelligible words. He is given a dose of Zyprexa which he willingly takes. He says he actually thinks he has had this before. He continues to talk to hallucinations. Becoming quite loud. He is given 1 dose of Ativan to help with. At no time is he aggressive towards staff. Simply lying in bed yelling at things that are not there. signed out to Dr. Allen [id number] After an additional 20 mg of Zyprexa and 2 mg of oral Ativan patient is no longer actively hallucinating. He states that he is not suicidal. He still seems quite disorganized. He states the last time he was hospitalized for his schizophrenia bipolar type was at [facility] but is unsure time frame. He was seen on the with complaints of back pain and is not currently complaining of back pain. At this point he is medically cleared and seems to have metabolized most of his methamphetamine. I am still concerned that he is gravely disabled. I am concerned that it has taken such large doses of Zyprexa to get his symptoms under control and do not think that he has the capacity to manipulate medications as needed. [place] level returned and was appropriate. Will give him his scheduled 600 mg of morning lithium. As his back is no longer bothering him well hold his recently prescribed methylprednisolone (it looks like he took a single day of this). Will ask social media sr strategy manager to further evaluate\ 1pm social media sr strategy manager had a chance to chat with this gentleman. He typically is in [facility], has a long history with [facility], he has had multiple inpatient stays in the past and multiple outpatient resources checking up on him. Notes from previous stays at indicated if he seems to be escalating that DCR may be appropriate. At this point he actually is voluntary and would agree to stay in a psychiatric facility. Our social media sr strategy manager will begin to make phone calls to see what type of bed availability there is. If he chooses to no longer be voluntary, will likely need DCR element. 2pm patient states he would like to leave. AGENT [employer]PA [employer]K is notified and she has called DCR 445pm DCR in the departement for further evaluation 6pm patient has been formally detained and has a bed available at [facility]. He can leave [facility] at 10:00 p.m. and inlet transport has been arranged. DCR was concerned that he was beginning to become a bit more agitated. Does have both hydroxyzine and chlorpromazine as needed every 4 hours as part of his routine medications. Was given doses of both at 4:30 a.m. this afternoon and will be repeated at 8:30 a.m. this evening. <Fabiana Allen MD - Last Filed: 12/20/21 06:36> Restraint Vsmf-ag-Jpqp Evaluation Ewad-bf-Hwyv #1: Date: 12/19/21 Time: 08:49 Patient Appearance: Disheveled Level of Consciousness: Alert and Restless Speech Pattern: Excessive and Garbled Mood Description: Labile Ability to Follow Directions: Fair Hallucination Type: Auditory and Visual Thought Process: Disorganized, Looseness of association, Tangential and Illogical Respirations: Normal respiratory rate Cardiac: Regular Rate Circulation: Moves all extremities Behavior necessitating restraint: Agitated (risk for elopement, has already done so) and Suicidal Reaction to Intervention: Other (resigned. still responding to internal stimuli. will re-eval after medicated. will open doors when calmer, sitter available) Restraint Needs: Continue Restraints Gmah-qo-Acwx #2: Date: 12/19/21 Time: 12:45 Patient Appearance: Unkempt and Disheveled Level of Consciousness: Alert Mood Description: Calm Ability to Follow Directions: Fair Hallucination Type: Auditory (improved) Thought Process: Disorganized Respirations: Normal respiratory rate Cardiac: Regular Rate Circulation: Moves all extremities Behavior necessitating restraint: Agitated Reaction to Intervention: Awake, Resting Quietly Restraint Needs: Continue Restraints Gdio-bm-Bblc #3: Date: 12/19/21 Time: 18:36 Patient Appearance: Disheveled Level of Consciousness: Awake Speech Pattern: Rambling Mood Description: Calm (but begining to show signs of increased agitation) Ability to Follow Directions: Fair Hallucination Type: Auditory Thought Process: Illogical Respirations: Normal respiratory rate Cardiac: Regular Rate Circulation: Moves all extremities Behavior necessitating restraint: Agitated (now detained by DCR awaiting transfer to [facility]) Restraint Needs: Continue Restraints Discharge Plan Departure Patient Disposition: er Psychiatric [facility]osp Clinical Impression: Acute psychosis, Chronic schizophrenia, Methamphetamine use
[2021-12-19 01:43] LABS: Add Manual Diff / Slide Review NO; Basophils Absolute Auto 100 /uL (0-100); Basophils Percent Auto 0.5 % (0-2); Eosinophils Absolute Auto 0 /uL (0-450); Eosinophils Percent Auto 0.4 % (2-4); Hemoglobin 13.7 g/dL (13.5-17.5); Lymphocytes Absolute Auto 2100 /uL (1100-4500); Lymphocytes Percent Auto 15.3 % (25-40); Mean Corpuscular HGB Conc 33.3 % (30-36); Mean Corpuscular Hemoglobin 28.2 PG (26-34); Mean Corpuscular Volume 84.7 fL (80-100); Monocytes Absolute Auto 600 /uL (0-900); Monocytes Percent Auto 4.8 % (3-14); Neutrophils Absolute Auto 10700 /uL (1500-7000); Platelet Count 299 X10^3/uL (150-400); Red Blood Cell Count 4.84 X10^6/uL (4.5-5.9); Red Cell Distribution Width 14.9 % (11.6-14.8); White Blood Cell Count 13.5 X10^3/uL (4.5-11.0)
[2021-12-19 01:50] LABS: UR Morphine/Opiate cutoff 300 Negative (Negative); Ur Specific Gravity 1.025 (Normal); Urine Amphetamines Positive (Negative); Urine Barbiturates Negative (Negative); Urine Benzodiazepines Negative (Negative); Urine Cocaine Negative (Negative); Urine MDMA Negative (Negative); Urine Methadone Negative (Negative); Urine Methamphetamines Positive (Negative); Urine Phencyclidine Negative (Negative); Urine Tetrahydrocannabinol Negative (Negative); Urine pH 5 (Normal)
[2021-12-19 01:51] LABS: Ur Creatinine 20 (Normal); Urine Oxycodone Negative (Negative); Urine Tricyclic Antidepressant Positive (Negative)
[2021-12-19 01:53] LABS: COVID19 -Nasal RAPID Negative (Negative)
[2021-12-19 01:54] LABS: Alanine Aminotransferase 24 IU/L (<50); Albumin 4.5 g/dL (3.5-5.0); Albumin Globulin Ratio 1.4 (1.0-2.8); Alkaline Phosphatase 73 U/L (38-126); Aspartate Aminotransferase 22 IU/L (17-59); BUN Creatinine Ratio 22.4 (6-22); Bilirubin Total 0.5 mg/dL (0.2-1.3); Blood Urea Nitrogen 13 mg/dL (9-20); Calcium 9.5 mg/dL (8.4-10.2); Carbon Dioxide 27 mmol/L (22-32); Chloride 108 mmol/L (98-107); Estimated Glomerular Filt Rate > 60.0 mL/min (>60); Ethanol (ETOH) < 10 mg/dL; Globulin 3.2 g/dL (1.7-4.1); Glucose 111 mg/dL (70-100); HEMOLYSIS 19 (0-50); Potassium 3.6 mmol/L (3.4-5.1); Sodium 140 mmol/L (137-145); Total Protein 7.7 g/dL (6.3-8.2)
[2021-12-19] MEDS: OLANZapine ODT 10 MG TAB PO ×2 (02:25→21:56)
[2021-12-19 02:31] LABS: TSH w/ Reflex to FT4 1.56 uIU/mL (0.47-4.68)
[2021-12-19] MEDS: LORazepam 2 MG/ML INJ IM (02:37)
[2021-12-19 03:19] LABS: Appearance Urine UA CLEAR; Bilirubin Urine UA NEGATIVE (NEGATIVE); Color Urine UA YELLOW; Glucose Urine UA NEGATIVE (Negative); Ketones Urine UA NEGATIVE (NEGATIVE); Leukocyte Esterase Urine UA NEGATIVE (NEGATIVE); Nitrite Urine UA NEGATIVE (Negative); Occult Blood Urine UA TRACE-LYSED (Negative); Protein Urine UA NEGATIVE (Negative); Urobilinogen Urine UA 0.2 E.U./dL (0.2); pH Urine UA 6.5 (4.5-8.0)
--- NOTE | 2021-12-19 03:41 | PC.NURSE ---
He is in room,quiet now,however he is now masturbating.
--- NOTE | 2021-12-19 05:26 | PC.NURSE ---
He still denies suicidal thoughts at this time.
--- NOTE | 2021-12-19 06:48 | PC.NURSE ---
He continues to answer no when asked if he has suicidal thoughts.He ambulated to bathroom with a steady gait.He has clear speech but mumbles at times.
[2021-12-19 07:36] LABS: Lithium 0.8 mmol/L (0.6-1.2)
--- NOTE | 2021-12-19 07:40 | PC.NURSE ---
On his arrival here he was placed in a high visability room and told me at this time he would not harm himself or others.
--- NOTE | 2021-12-19 07:52 | PC.NURSE ---
Pt was moved to room [address] Allen. Pt was noted to not be in room. Security called to look on camera footage. Prior to placement in room, pt stated he had no thought of self harm or harming others.
--- NOTE | 2021-12-19 08:09 | PC.NURSE ---
Pt is sitting up on his bed and eating breakfast tray from dietary. He is calm and agreeable at this time.
--- NOTE | 2021-12-19 08:15 | PC.NURSE ---
Pt wandered back to room on his own. Pt was told to stay in room and that he could not leave. Pt said ok and apologized. Pt is cooperative and denies SI or HI.
--- NOTE | 2021-12-19 08:22 | PC.NURSE ---
Pt is laying in bed. He is calm and cooperative at this time.
[2021-12-19] MEDS: LORazepam 0.5 MG TABLET 2 MG PO (09:01)
[2021-12-19] MEDS: OLANZapine ODT 10 MG TAB 20 MG PO (09:04)
--- NOTE | 2021-12-19 13:06 | PC.NURSE ---
Dr. Allen discontinued baclofen and methylpred.
--- NOTE | 2021-12-19 13:26 | CM.SWNOTE ---
Addendum entered by ODALIS Acevedo 12/19/21 14:13: ADD: According to ED staff, patient now states he will not go to another psych facility. Patient will be considered DCR candidate at this time. Dr Allen and this TERMITE TECHNICIAN agree patient is considered gravely disabled Placed call to [facility] to request DCR be dispatched. Requested [place] REYNA have Dr Allen sign medical attestation form and fax to [facility] in so that DCR can be dispatched. Awaiting CB from [facility] and/or DCR re ETA JW Original Note: TERMITE TECHNICIAN Assessment Note TERMITE TECHNICIAN - Block Sealer Assessment Start: 12/19/21 13:03 Freq: Status: Active Protocol: Document 12/19/21 13:03 OSEAS (Rec: 12/19/21 13:25 OSEAS [id number]) TERMITE TECHNICIAN/Block Sealer Assessment Presenting Problem HPI Narrative: Patient is a 51 -year-old male with history of bipolar, anxiety, schizophrenia, substance abuse including methamphetamine presenting today with suicidal ideations. He was actually seen evaluated here last night Was found unresponsive lying on the ground surrounded by of alcohol bottles. He was observed in the emergency department for numerous hours and released this morning. He now presents stating that he wants to harm himself cutting his wrist and his neck. Precipitating Event(s) the collateral clerk hate me Patient Strengths Survivor, homeless Current Behavioral Health Provider(s) Hx [facility] w/ provider Dr Fuchs Facility, Provider, Ph. # Jimmie Cortez, date of last service unknown Psych. Hx Mental Health and Chemical bipolar, anxiety, Dependency schizophrenia, acute psychosis Family Hx of Behavioral Abuse Not assessed Psychiatric Hospitalizations (date(s)/ multiple inpatient psych location) hopitalizations, dates unknown . At least 4 per [facility] MIS check Psychosocial information & Support None reported Systems School/Work None reported Presenting Problem Tox+ Methamphetamines Legal Matters - Outstanding Issues Not assessed Orientation (Person/Place/Time) Patient aware he is at [facility], aware of time and situation Stated Mood better Thought Content - Specify/Describe Admits to continued auditory Obsessions, Delusions, Hallucinations hallucinations Thought Processes (Xxdmbgx-Tztymzof-Vgdd Logical, not goal directed. Bktqioeb-Fccdypmz-Hsvylqhbgx- Answers this TERMITE TECHNICIAN's questions Odrijdochvbdkf-Ewbtxcf-Lcihovkqgolr- appropriately, does not Thought Blocking) elaborate, one-two word answers Speech (Meslon-Alrn-Mfrhzoc-Rapid-Soft- Normal, mumbling, difficult to Loud-Pressured) understand Motor (Topvte-Xexvjzgsm-Qfwi-Other) Not assessed Insight (Mftl-Pqqb-Eogn/Limited) Poor/Limited Judgement (Nubk-Zwkg-Gecb/Limited) Poor/Limited Impulse Control (Adequate-Impaired) Impaired Memory (Mpiankpdq-Mfzbwz-Rsebpm, Not assessed Impaired-Intact) Concentration (Intact-Impaired) Impaired Attention (Intact-Impaired) Intact Behavior (Appropriate-Inappropriate) Appropriate Suicidal Ideation (Plan) Yes Homicidal Ideation (Plan) No Comment No plan at this time, admits to continued SI, states they helped a lot (Zyprexa) Intervention Patient tells this TERMITE TECHNICIAN that he is feeling better here. States he took buses up to [place] to see someone and explains he is from [place] where he has been homeless for approx one year. Patient is able to recall hx of inpatient hospitalization, admits that he has been very suicidal I get down on myself because of my situtation and admits to increasing auditory hallucinations and lack of medication compliance. Patient has recently been to [facility] for inpatient stabilization and would like to try [facility] or alternative inpatient facility first. Patient acts and sounds younger than stated age, states the collateral clerk hate me. Placed call to [facility] for MIS chk and learned that patient has an extensive hx of [place] based calls from community staff, triage centers, inpatient facilities for MIS chk, and hx of separation from family, hx of multiple inpatient stays, [facility] and [facility], hx of SA. no record on [facility]. [place] only RA Plan Discussed plan w/patient; he continues to endorse SI, endorses auditory hallucinations, calm and cooperative with care, agrees to getting help from an inpatient unit for stabilization. Discussed w/ER provider Dr Allen who has medically cleared patient and agrees with plan for attempt at [facility] bed
[2021-12-19] MEDS: LITHIUM 150 MG IR CAPSULE 600 MG PO (13:29)
--- NOTE | 2021-12-19 13:50 | PC.NURSE ---
Patient stepped out of room. This DELIVERY SPECIALIST approached patient and asked what he needs. Patient expressed that he does not want to go to a psychiatric facility. This DELIVERY SPECIALIST told patient that the Nurse and Doctor would be informed. Nurse and doctor informed. Patient expressed that he did not want to go to another facility after telling the nurse and doctor.
[2021-12-19] MEDS: chlorproMAZINE 25 MG TABLET 50 MG PO ×2 (15:36→21:58)
--- NOTE | 2021-12-19 15:43 | PC.NURSE ---
Patient requesting to leave, states he feels much better. Educated patient that he is on involuntary hold pending evaluation, patient acknowledged teaching. Requested to leave again, offered medication for anxiety which patient accepted. Is calm and cooperative with care. Patient is difficult to understand at times d/t mumbling but can make needs known. Remains on 1:1 sitter for SI.
--- NOTE | 2021-12-19 16:50 | PC.NURSE ---
Patient has started to shout and is pointing to the door. This CHARGING OPERATOR entered room and asked patient if everything is ok. Patient settled and spoke in appropriate inside voice stating that he was ok. This CHARGING OPERATOR asked if patient is seeing someone in the room to which he replied 'No, I hear voices in my head.' This CHARGING OPERATOR asked patient if he is replying to them to which he answered, 'Yes.' Patient proceeded to say that he would like to 'kill the international student advisor in the parking lot'. This CHARGING OPERATOR asked the patient if the door could be cracked instead of open and patient agreed that that was fine. Patient remains in room and continues to speak loudly and pointing at the door.
--- NOTE | 2021-12-19 17:05 | PC.NURSE ---
DCR has arrived to speak with patient. DCR in room with patient now.
[2021-12-19] MEDS: LITHIUM 300 MG IR CAPSULE 600 MG PO (21:57)
[2021-12-19] MEDS: GABAPENTIN 300 MG CAPSULE PO (22:01)
== END 2021-12-19 22:10 ==
PROVIDERS: Emergency Medicine; Emergency Provider Emergency Medicine
DX: F23 Brief psychotic disorder (principal); F15.90 Other stimulant use, unspecified, uncomplicated; Z59.00 Homelessness unspecified; F17.200 Nicotine dependence, unspecified, uncomplicated; Z20.822 Contact with and (suspected) exposure to COVID-19
CPT/HCPCS: 36415; 80053; 80178; 80305; 80320; 81003; 84443; 85025; 87635; 93005; 96372; 99284; 99285; C9803; J2060

== ENCOUNTER 2022-01-07 17:43 | Emergency (ER) | payer MEDICARE, MEDICAID, SELFPAY ==
[2022-01-07 17:55] VITALS: BP 163/96; PULSE 85; RESP 17; TEMP 36.9; O2SAT 99; BMI 27.9
--- NOTE | 2022-01-08 00:37 | PC.NURSE ---
Patient comes in tonight with concerns that the voices in his head will convince himself to commit suicide. The voice tells him to kill yourself already but that he doesn't want to kill himself and that he wants to be worthwhile to people. When asked if he has a plan he said he could take too many pills, cut myself, or hang myself but reports he does not have access to anything sharp or a place to hang himself but does have his psychiatric medications with him. Patient denies homicidal ideation. Patient reports recent drug abuse with meth mixer. Is calm and cooperative with care.
[2022-01-08 00:46] LABS: COVID19 -Nasal RAPID Negative (Negative)
[2022-01-08 00:56] LABS: Appearance Urine UA CLEAR; Bilirubin Urine UA NEGATIVE (NEGATIVE); Color Urine UA YELLOW; Glucose Urine UA TRACE g/dL (Negative); Ketones Urine UA NEGATIVE (NEGATIVE); Leukocyte Esterase Urine UA NEGATIVE (NEGATIVE); Nitrite Urine UA NEGATIVE (Negative); Occult Blood Urine UA NEGATIVE (Negative); Protein Urine UA NEGATIVE (Negative); UR Morphine/Opiate cutoff 300 Negative (Negative); Ur Creatinine Normal (Normal); Ur Specific Gravity Normal (Normal); Urine Amphetamines Negative (Negative); Urine Barbiturates Negative (Negative); Urine Benzodiazepines Negative (Negative); Urine Cocaine Negative (Negative); Urine MDMA Negative (Negative); Urine Methadone Negative (Negative); Urine Methamphetamines Positive (Negative); Urine Oxycodone Negative (Negative); Urine Phencyclidine Negative (Negative); Urine Tetrahydrocannabinol Negative (Negative); Urine Tricyclic Antidepressant Negative (Negative); Urine pH Normal (Normal); Urobilinogen Urine UA 0.2 E.U./dL (0.2); pH Urine UA 7.5 (4.5-8.0)
[2022-01-08 00:59] LABS: RBC Urine 0-1/HPF (0-5/HPF); Squamous Epithelial Cell Urine 0-1 /HPF (0-5/HPF); WBC Urine None Seen (0-5/HPF)
[2022-01-08 01:00] LABS: Bacteria Urine None Seen; Culture Indicated Urine Cult Not Indicated
[2022-01-08 01:41] VITALS: BP 151/88; PULSE 80; RESP 20; TEMP 36.6; O2SAT 98
--- NOTE | 2022-01-08 04:39 | ED.PSYCH ---
HPI - Psych <Fabiana Allen MD - Last Filed: 01/31/22 03:37> General Chief Complaint: Psychiatric Symptoms Stated Complaint: SUICIDAL/HEARING VOICES Time Seen by Provider: 01/08/22 03:37 Source: patient Mode of arrival: Ambulatory History of Present Illness HPI Narrative: 51-year-old gentleman with a history of schizophrenia bipolar type anxiety with substance abuse predominantly methamphetamine presents today complaining of suicidal ideation. He has a number of concrete ideason how to kill himself such as driving off a bridge, taking a number of pills, cutting himself he is not voicing the cognitive process required to get to those steps. Again tonight, he has been using ?meth mixtures?. He is tangential and difficult to refocus. He notes hearing voices but denies any visual hallucinations. Related Data Home Medications Medication Instructions Recorded Confirmed hydroxyzine HCl 50 mg tablet 25 mg PO TID PRN 09/05/21 01/08/22 lithium carbonate 300 mg 600 mg PO BID 09/05/21 01/08/22 tablet,extended release olanzapine 10 mg tablet 15 mg PO BEDTIME 12/19/21 01/08/22 Allergies Allergy/AdvReac Type Severity Reaction Status Date / Time No Known Drug Allergies Allergy Verified 12/19/21 13:08 Review of Systems <Fabiana Allen MD - Last Filed: 01/31/22 03:37> Review of Systems ROS Unobtainable: Unobtainable due to mental condition Patient History <Fabiana Allen MD - Last Filed: 01/31/22 03:37> Medical History Methamphetamine use Schizophrenia Social History Smoking Status: Current every day smoker Smoking Status: Current every day smoker alcohol intake frequency: other Substance Use Type: marijuana and methamphetamine Exam <Fabiana Allen MD - Last Filed: 01/31/22 03:37> Initial Vital Signs Initial Vital Signs: Vital Signs Temperature 98.4 F 01/07/22 17:55 Pulse Rate 85 01/07/22 17:55 Respiratory Rate 17 01/07/22 17:55 Blood Pressure 163/96 H 01/07/22 17:55 Pulse Oximetry 99 02/17/22 17:55 General: Disheveled, poor eye contact HEENT: Moist mucous membranes, normal sclera with reactive pupils, Respiratory: Lungs are clear to auscultation, no wheezing no rales no rhonchi. Full and symmetrical air movement Cardiac: Mild tachycardia but otherwise Regular rate and rhythm no murmurs no bruits Abdomen: Soft, nontender, good bowel tones, no flank pain Skin: Unwashed, no abscess is appreciated Neurologic: Grossly neurologically intact with no obvious asymmetries or abnormalities Extremities: Hyperemic hands, no lower extremity edema Psych: Tangential scattered, seems to be responding to internal stimuli, pressured speech <Carlos A Wright MD - Last Filed: 01/08/22 08:11> Initial Vital Signs Initial Vital Signs: Vital Signs Temperature 98.4 F 01/07/22 17:55 Pulse Rate 85 01/07/22 17:55 Respiratory Rate 17 01/07/22 17:55 Blood Pressure 163/96 H 01/07/22 17:55 Pulse Oximetry 99 01/07/22 17:55 Course <Fabiana Allen MD - Last Filed: 01/31/22 03:37> Orders Ordered: ED Orders 01/08/22 00:25 COVID19 -Nasal swab/Pre-Proc Stat 01/08/22 00:45 Urinalysis and Microscopic Stat Urine Drug Screen, Rapid Stat Vital Signs Vital signs: Vital Signs - 8 hr 01/08/22 01:41 Temperature 97.9 F Pulse Rate 80 Respiratory Rate 20 Blood Pressure 151/88 H Pulse Oximetry 98 <Carlos A Wright MD - Last Filed: 01/08/22 08:11> Course Course Narrative: Care was assumed at change of shift from Dr. Kemp. The patient has been sleeping. At the time of disposition is now awake and cooperative. He has no ongoing suicidal ideation. He notes the necessity of been compliant with medications and avoiding substance abuse. He agrees follow-up with his PCM. He is medically cleared.-Joselito JAMES 01/08/22@08:10. Orders Ordered: ED Orders 01/08/22 00:25 COVID19 -Nasal swab/Pre-Proc Stat 01/08/22 00:45 Urinalysis and Microscopic Stat Urine Drug Screen, Rapid Stat Vital Signs Vital signs: Vital Signs - 8 hr 01/08/22 01:41 Temperature 97.9 F Pulse Rate 80 Respiratory Rate 20 Blood Pressure 151/88 H Pulse Oximetry 98 MDM - Psych <Fabiana Allen MD - Last Filed: 01/31/22 03:37> Lab Data Labs: Lab Results 01/08/22 01/08/22 01/08/22 Range/Units 00:25 00:45 00:45 Urine Color Yellow Urine Appearance Clear Urine pH 7.5 (4.5-8.0) Ur Specific [place] 1.010 (1.000-1.035) Urine Protein Negative (Negative) Urine Glucose (UA) Trace H (Negative) g/dL Urine Ketones Negative (NEGATIVE) Urine Occult Blood Negative (Negative) Urine Nitrate Negative (Negative) Urine Bilirubin Negative (NEGATIVE) Urine Urobilinogen 0.2 (0.2) E.U./dL Ur Leukocyte Esterase Negative (NEGATIVE) Urine RBC 0-1/hpf (0-5/HPF) Urine WBC None seen (0-5/HPF) Ur Squamous Epith Cells 0-1 /hpf (0-5/HPF) Urine Bacteria None seen (None) Ur Culture Indicated? Cult not indicated U Opiates 300ng/mL cut Negative (Negative) Ur Oxycodone Screen Negative (Negative) Urine Methadone Screen Negative (Negative) Ur Barbiturates Screen Negative (Negative) U Tricyclic Antidepress Negative (Negative) Ur Phencyclidine Scrn Negative (Negative) Ur Amphetamines Screen Negative (Negative) U Methamphetamines Scrn Positive H (Negative) Ur MDMA Scrn (Ecstasy) Negative (Negative) U Benzodiazepines Scrn Negative (Negative) Urine Cocaine Screen Negative (Negative) U Marijuana (THC) Screen Negative (Negative) SARS-CoV-2 (PCR) Negative (Negative) [facility] Narrative Medical decision making narrative: 51-year-old gentleman with schizophrenia bipolar type, methamphetamine use disorder currently experiencing homelessness. Will known to the emergency department staff. Today he is able to quietly stay in a room with the door open without creating a hazard to himself, other patients or staff. He did take his lithium olanzapine and hydroxyzine voluntarily this evening. It is unclear what type of help he is specifically looking for and when asked he simply states he is having suicidal thoughts. With today's visit he does not seem immediately gravely disabled and I am not sure that in patient care is going to be required. Will allow him to metabolize his methamphetamine a bit prior to repeating blood workup as would be required for psychiatric admission. Will need to be re-evaluated later this morning. Care will be turned over to Dr. Wright <Carlos A Wright MD - Last Filed: 01/08/22 08:11> Lab Data Labs: Lab Results 01/08/22 01/08/22 01/08/22 Range/Units 00:25 00:45 00:45 Urine Color Yellow Urine Appearance Clear Urine pH 7.5 (4.5-8.0) Ur Specific [place] 1.010 (1.000-1.035) Urine Protein Negative (Negative) Urine Glucose (UA) Trace H (Negative) g/dL Urine Ketones Negative (NEGATIVE) Urine Occult Blood Negative (Negative) Urine Nitrate Negative (Negative) Urine Bilirubin Negative (NEGATIVE) Urine Urobilinogen 0.2 (0.2) E.U./dL Ur Leukocyte Esterase Negative (NEGATIVE) Urine RBC 0-1/hpf (0-5/HPF) Urine WBC None seen (0-5/HPF) Ur Squamous Epith Cells 0-1 /hpf (0-5/HPF) Urine Bacteria None seen (None) Ur Culture Indicated? Cult not indicated U Opiates 300ng/mL cut Negative (Negative) Ur Oxycodone Screen Negative (Negative) Urine Methadone Screen Negative (Negative) Ur Barbiturates Screen Negative (Negative) U Tricyclic Antidepress Negative (Negative) Ur Phencyclidine Scrn Negative (Negative) Ur Amphetamines Screen Negative (Negative) U Methamphetamines Scrn Positive H (Negative) Ur MDMA Scrn (Ecstasy) Negative (Negative) U Benzodiazepines Scrn Negative (Negative) Urine Cocaine Screen Negative (Negative) U Marijuana (THC) Screen Negative (Negative) SARS-CoV-2 (PCR) Negative (Negative) Discharge Plan Departure Patient Disposition: Home Clinical Impression: Methamphetamine use, Schizophrenia, Suicidal ideation Instructions: Substance Use Disorder Activity Restrictions/Additional Instructions: Recommend you continue current medications. Avoid the use of illegal drugs. Follow-up with your PCM. Consider detox/rehab. Return here as needed. Prescriptions: No Action lithium carbonate 300 mg tablet extended release 600 mg PO BID 0RF hydroxyzine HCl 50 mg tablet 25 mg PO TID PRN (Reason: Anxiety & or itching) 0RF olanzapine 10 mg tablet 15 mg PO BEDTIME 0RF Label Comments: Take 1 tablet by mouth 2 times daily for 30 days. Indications Manic Phase of Manic-Depression
[2022-01-08 08:12] VITALS: BP 134/81; PULSE 76; RESP 18; O2SAT 97
== END 2022-01-08 08:15 | disposition home or self-care (01) ==
PROVIDERS: Emergency Provider Emergency Medicine
DX: F15.90 Other stimulant use, unspecified, uncomplicated (principal); F20.9 Schizophrenia, unspecified; R45.851 Suicidal ideations; F17.200 Nicotine dependence, unspecified, uncomplicated; Z20.822 Contact with and (suspected) exposure to COVID-19
CPT/HCPCS: 80305; 81001; 87635; 99282; 99284; C9803

== ENCOUNTER 2022-06-03 13:03 | Emergency (ER) | payer OTHER, MEDICAID, SELFPAY ==
[2022-06-03 13:10] VITALS: BP 144/81; PULSE 97; RESP 18; TEMP 37.2; O2SAT 97; BMI 26.5
[2022-06-03] MEDS: LIDOCAINE PATCH 1 EACH ADH..PATCH TOP (14:43)
[2022-06-03] MEDS: KETOROLAC 30 MG/ML VIAL 15 MG IM (14:43)
[2022-06-03] MEDS: HYDROCODONE/ACET 5/325 TABLET 1 TAB PO (14:43)
[2022-06-03] MEDS: methocarbamoL 500 MG TABLET PO (14:43)
--- NOTE | 2022-06-03 17:01 | ED.BACK ---
HPI - Back Pain/Injury <ALANNAH Nunez - Last Filed: 06/03/22 17:06> General Chief Complaint: Back Pain/Injury Stated Complaint: Back pain Time Seen by Provider: 06/03/22 14:32 Source: patient History of Present Illness HPI Narrative: 52-year-old male with history of schizophrenia, is on lithium and reports being stable on his medications and states that he has a history of herniated disc in his lumbar spine and has been having low back pain and muscle spasms over the last two days and this has been quite painful. Reports that he is in a good state of health, denies any fever, denies any new weakness or sensation changes, he denies any weakness or sciatica symptoms. Denies any recent trauma or falls. He is requesting a shot of Toradol and medication for pain. He rode the bus to the hospital today, is pleasant, ambulatory, and talkative. Complains of worsening pain over the last 1-2 weeks. Denies any fever, denies any sore throat or cough, denies any other sensations. Patient states that he has received steroids in the past for his low back pain and has always been helpful. He states that he does not think he needs at this time and anti-inflammatories should suffice. Related Data Previous Rx's Medication Instructions Recorded hydrocodone 5 mg-acetaminophen 325 1 tab PO BID PRN pain #7 tabs 06/03/22 mg tablet ketorolac 10 mg tablet 10 mg PO Q8H PRN pain 4 days #10 06/03/22 tabs methocarbamol 500 mg tablet 500 mg PO BID PRN muscle spasm #14 06/03/22 tabs Review of Systems <ALANNAH Nunez - Last Filed: 06/03/22 17:06> Review of Systems Narrative: General: denies fever, chills Head/Neck: denies headache, neck pain Eyes: denies visual changes, eye pain Cardio: denies chest pain, palpitations Respiratory: denies shortness of breath, cough GI: denies abdominal pain, nausea, vomiting, or diarrhea : denies dysuria, hematuria or flank pain MSK: denies new joint pain, muscle weakness or swelling, endorses low back pain which is similar to his exacerbations of chronic back pain past. Skin: denies rash, itching or wound Neuro: denies numbness, tingling, dizziness Patient History <ALANNAH Nunez - Last Filed: 06/03/22 17:06> tobacco type: cigarettes alcohol intake frequency: 0-2 drinks per day Substance Use Type: does not use Exam <ALANNAH Nunez - Last Filed: 06/03/22 17:06> Narrative Exam Narrative: Independently reviewed vitals signs and nursing notes. General: cooperative, comfortable, in no acute distress, clothes are dirty Head: atraumatic, symmetrical facial expressions Neck: supple Eyes: equal round and reactive, EOMI, conjunctiva normal Mouth/Throat: moist mucus membranes Cardiovascular: regular rate and rhythm, no peripheral edema, warm extremities Respiratory: normal effort, able to speak in complete sentences, no audible wheezing, stridor, or rales. No retractions or tachypnea. GI: abdomen soft, nontender to palpation, nondistended, no masses, no exquisite tenderness with exam, without guarding or rebound. MSK: moves all extremities, neurovascularly intact, no weakness, normal tone, patient is ambulatory with steady gait, no point tenderness on exam, no signs of trauma Skin: brisk capillary refill, no rash, no erythema Neuro: normal speech and cognition, A&O x3 Psych: mental status is grossly normal, congruent mood, normal affect, pleasant and cooperative Initial Vital Signs Initial Vital Signs: Vital Signs Temperature 99.0 F 06/03/22 13:10 Pulse Rate 97 H 06/03/22 13:10 Respiratory Rate 18 06/03/22 13:10 Blood Pressure 144/81 H 06/03/22 13:10 Pulse Oximetry 97 06/03/22 13:10 Oxygen Delivery Method 06/03/22 13:10 <Virgil Stafford DO - Last Filed: 06/03/22 18:23> Initial Vital Signs Initial Vital Signs: Vital Signs Temperature 99.0 F 06/03/22 13:10 Pulse Rate 97 H 06/03/22 13:10 Respiratory Rate 18 06/03/22 13:10 Blood Pressure 144/81 H 06/03/22 13:10 Pulse Oximetry 97 06/03/22 13:10 Oxygen Delivery Method 06/03/22 13:10 Course <ALANNAH Nunez - Last Filed: 06/03/22 17:06> Orders Ordered: Discontinued Medications Hydrocodone Bitart/Acetaminophen (Hydrocodone/Acet 5/325 Tablet) 1 tab PO NOW ONE Stop: 06/03/22 14:33 Last Admin: 06/03/22 14:43 Dose: 1 tab Documented By: YOKASTA Ketorolac Tromethamine (Ketorolac 30 Mg/Ml Vial) 15 mg IM NOW ONE Stop: 06/03/22 14:33 Last Admin: 06/03/22 14:43 Dose: 15 mg Documented By: YOKASTA Lidocaine (Lidocaine Patch 1 Each Adh..Patch) 1 each TOP NOW ONE Stop: 06/03/22 14:33 Last Admin: 06/03/22 14:43 Dose: 1 each Documented By: YOKASTA Methocarbamol (Methocarbamol 500 Mg Tablet) 500 mg PO NOW ONE Stop: 06/03/22 14:33 Last Admin: 06/03/22 14:43 Dose: 500 mg Documented By: YOKASTA Vital Signs Vital signs: Vital Signs - 8 hr 06/03/22 13:10 Temperature 99.0 F Pulse Rate 97 H Respiratory Rate 18 Blood Pressure 144/81 H Pulse Oximetry 97 Oxygen Delivery Method Room Air <Virgil Stafford DO - Last Filed: 06/03/22 18:23> Orders Ordered: Discontinued Medications Hydrocodone Bitart/Acetaminophen (Hydrocodone/Acet 5/325 Tablet) 1 tab PO NOW ONE Stop: 06/03/22 14:33 Last Admin: 06/03/22 14:43 Dose: 1 tab Documented By: YOKASTA Ketorolac Tromethamine (Ketorolac 30 Mg/Ml Vial) 15 mg IM NOW ONE Stop: 06/03/22 14:33 Last Admin: 06/03/22 14:43 Dose: 15 mg Documented By: YOKASTA Lidocaine (Lidocaine Patch 1 Each Adh..Patch) 1 each TOP NOW ONE Stop: 06/03/22 14:33 Last Admin: 06/03/22 14:43 Dose: 1 each Documented By: YOKASTA Methocarbamol (Methocarbamol 500 Mg Tablet) 500 mg PO NOW ONE Stop: 06/03/22 14:33 Last Admin: 06/03/22 14:43 Dose: 500 mg Documented By: YOKASTA Vital Signs Vital signs: Vital Signs - 8 hr 06/03/22 13:10 Temperature 99.0 F Pulse Rate 97 H Respiratory Rate 18 Blood Pressure 144/81 H Pulse Oximetry 97 Oxygen Delivery Method Room Air [facility] - Back Pain/Injury <Meggan Bennett, [facility] - Last Filed: 06/03/22 17:06> [facility] Narrative Medical decision making narrative: This is a 52-year-old male presents to the emergency department complaining of worsening low back pain over the last two days with history of herniated disc in the past. He denies any weakness, sensation changes, difficulty ambulating or other new changes. He denies any trauma. Patient presents with 3 days of lower back pain, atraumatic, afebrile. Given history and exam, suspect likely musculoskeletal etiology, he is nontoxic appearing with no overt risk factors for epidural hematoma or abscess. No overt evidence or acute critical cord compression with nonfocal neuro exam. Neurovascularly intact distally, no evidence infection, no peritoneal signs or abdominal pain on exam low suspicion for AAA. He does not have any weakness, incontinence, neurovascular or sensation changes or concerning findings for cauda equina syndrome, lumbar fracture, neuropathic pain, epidural abscess, or meningitis, this could also be a herniated disk, paraspinal/other muscle strain, osteoarthritis, nephrolithiasis, pyelonephritis, chronic neuropathic pain, and other considered. He was given Toradol, methocarbamol, lidocaine patch in the emergency department reports improvement in his pain. Patient is appropriate and amenable to discharge home. Vital signs are stable on repeat examination is unremarkable. Patient has been informed of results. Patient has been given strict return to ER precautions for any new or worsening symptoms. Patient understands to follow up closely with outpatient providers as instructed. Patient understands plan and agrees to discharge home. All questions and concerns answered at this time. Discharge Plan Departure Patient Disposition: Home Clinical Impression: Acute exacerbation of chronic low back pain Instructions: DI for Back Strain or Sprain Activity Restrictions/Additional Instructions: *You have been diagnosed with acute exacerbation of low back pain. Please using medications as needed to help treat her back pain. Follow-up with your doctor if you need two, please eat food with your medications so that you do not get a stomach ache. I hope that you feel better soon. You are evaluated in the emergency department today for back pain, your evaluation suggest no acute abnormalities which require further intervention at this time. Move around as tolerated but avoid heavy lifting or significant exertion. Bed rest is not recommended nor is it the best treatment for low back pain. Please try ibuprofen 800 mg every 8 hours for pain with food and water, methocarbamol- a muscle relaxer, one tab every 8 hours as needed for muscle spasms, caution this will make you sleepy, please do not drive or operate a vehicle with this. Do not drink alcohol, drive a car, operate machinery, or get up on ladders or heights when taking any prescribed pain medications. Do not drive home if you received prescribed pain medication here in the emergency department. Please follow-up with your primary care provider as needed, return to the emergency department immediately if you develop incontinence or difficulty urinating, inability to control your bowels, new numbness or weakness in her legs or numbness in your groin, the inability to walk, fever, or worsening symptoms which are making you ill. I recommend physical therapy and follow-up with your primary care provider for a referral for that and for any outpatient imaging as needed. *What to do: *Please continue to take your regular medications as directed. [x ] New medication prescriptions sent to your pharmacy: [ [facility]] [ ] New medication written as a paper prescription [ ] No new medications given *Please follow up with your primary care provider in 2-3 days, call for an appointment. Let them know you were seen in the Emergency Department and that we asked that you be seen for follow-up. We will electronically transmit a record of today's note if your PCP is in our system *If you do not have a primary care provider please contact [phone] to establish care with one of the [facility] primary care providers. *Return to Emergency Department if you should have any new, worsening or concerning symptoms, such as [fever greater than 101F, chills, worsening pain, persistent vomiting or other bothersome symptoms] Prescriptions: New methocarbamol 500 mg tablet 500 mg PO BID PRN (Reason: muscle spasm) Qty: 14 0RF hydrocodone-acetaminophen 5-325 mg tablet 1 tab PO BID PRN (Reason: pain) Qty: 7 0RF ketorolac 10 mg tablet 10 mg PO Q8H PRN (Reason: pain) 4 Days Qty: 10 0RF Visit Report Forms: Patient Portal/API <Virgil Stafford DO - Last Filed: 06/03/22 18:23> Cosign ED Attending [place] Attestation: I was immediately available in the department for consultation. Documentation has been reviewed. I agree with assessment and plan.
== END 2022-06-03 14:58 | disposition home or self-care (01) ==
PROVIDERS: Emergency Provider Nurse Practitioner Critical Care Medicine
DX: M54.50 Low back pain, unspecified (principal)
CPT/HCPCS: 96372; 99283; J1885

== ENCOUNTER 2022-06-03 18:54 | Emergency (ER) | payer MEDICARE, MEDICAID, SELFPAY ==
[2022-06-03 19:06] VITALS: BP 139/89; PULSE 80; RESP 16; TEMP 37.1; O2SAT 98; BMI 26.5
[2022-06-03 19:36] LABS: Appearance Urine UA CLEAR; Bilirubin Urine UA NEGATIVE (NEGATIVE); Color Urine UA YELLOW; Glucose Urine UA NEGATIVE (Negative); Ketones Urine UA NEGATIVE (NEGATIVE); Leukocyte Esterase Urine UA NEGATIVE (NEGATIVE); Nitrite Urine UA NEGATIVE (Negative); Occult Blood Urine UA NEGATIVE (Negative); Protein Urine UA TRACE (Negative); Specific Gravity Urine UA >=1.030 (1.000-1.035); Urobilinogen Urine UA 0.2 E.U./dL (0.2); pH Urine UA 5.5 (4.5-8.0)
--- NOTE | 2022-06-03 19:38 | ED_ITS ---
HPI - Psych General Chief Complaint: Psychiatric Symptoms Stated Complaint: psych eval-states has warrant for arrest Time Seen by Provider: 06/03/22 19:37 Source: patient Mode of arrival: Ambulatory Limitations: no limitations History of Present Illness HPI Narrative: This is a 52-year-old male with history of chronic back pain and bipolar disorder. Patient presents today requesting placement for inpatient psychiatric care or to have the police contacted to see if he has any warmth to go to senior living. Patient states he has been having suicidal thoughts that came on abruptly, he states he is cut himself in the past he does not actually given exact plan when asked directly. He has concerns that he would harm himself and does not feel that he can keep himself safe. Patient has had thoughts of harming others but states it is more in terms of someone attacking him he would want to defend himself. He is not seeking to harm other individuals. He has had these types of thoughts for, he is had inpatient psychiatric hospitalizations and has found them helpful. He states he is on lithium 300 mg twice daily, Zyprexa 10 mg in the evening and hydroxyzine 4 times daily as needed. States he took his morning lithium and hydroxyzine twice today. He denies any other medical issues. He has had chronic back issues was seen in the last day here at [facility] but states this is improved. He denies any other medical issues. No prior surgeries. He does smoke tobacco, denies current alcohol, states he was using marijuana and methamphetamines until about 10 days ago. Related Data Home Medications Medication Instructions Recorded Confirmed hydroxyzine HCl 50 mg tablet 25 mg PO Q6HR 09/05/21 06/03/22 lithium carbonate 300 mg 600 mg PO BID 09/05/21 06/03/22 tablet,extended release olanzapine 10 mg tablet 5 mg PO BEDTIME 12/19/21 06/03/22 hydrocodone 5 mg-acetaminophen 325 5 - 325 tab PO BID PRN Pain (Scale 06/03/22 06/03/22 mg tablet Score 4-6) ketorolac 10 mg tablet 10 mg PO Q8HR PRN Pain (Scale 06/03/22 06/03/22 Score 1-3) methocarbamol 500 mg tablet 500 mg PO BID PRN Spasms 06/03/22 06/03/22 Previous Rx's Medication Instructions Recorded hydrocodone 5 mg-acetaminophen 325 1 tab PO BID PRN pain #7 tabs 06/03/22 mg tablet methocarbamol 500 mg tablet 500 mg PO BID PRN muscle spasm #14 06/03/22 tabs Allergies Allergy/AdvReac Type Severity Reaction Status Date / Time No Known Drug Allergies Allergy Verified 06/04/22 07:06 Review of Systems Review of Systems ROS Unobtainable: All systems reviewed & are unremarkable except as noted in HPI and below Patient History Medical History Methamphetamine use Schizophrenia Social History (System 06/04/22 @ 07:06 by Lady Chica Erickson) Smoking Status: Current every day smoker Smoking Status: Current every day smoker alcohol intake frequency: other Substance Use Type: marijuana and methamphetamine Exam Narrative Exam Narrative: GENERAL: Alert and oriented x three, male who is mild distress. Patient is fidgety, cooperative. HEENT: Head normocephalic, atraumatic, EOMI, pupils reactive, face symmetric, moist mucous membranes NECK: Supple, full range of motion CARDIOVASCULAR: Regular rate and rhythm without murmurs, rubs or gallops. RESPIRATORY: Breath sounds equal bilaterally, no wheezes rales or rhonchi. ABDOMEN: Soft, nontender. Normoactive bowel sounds all 4 quadrants. No guarding or rebound, rigidity, no mass : No CVA tenderness EXTREMITIES: Normal range of motion, no clubbing or edema. Neurovascularly intact NEUROLOGICAL: Cranial nerves II through XII grossly intact. Moving all extremities SKIN: Warm, dry, no petechiae, no rashes or lesions. PSYCH: Admits to suicidal ideation, intent, patient has pressured speech, appro priate insight at this time, quite fidgety. Patient does appear to have some internal stimuli but mild. Initial Vital Signs Initial Vital Signs: Vital Signs Temperature 98.8 F 06/03/22 19:06 Pulse Rate 80 06/03/22 19:06 Respiratory Rate 16 06/03/22 19:06 Blood Pressure 139/89 06/03/22 19:06 Pulse Oximetry 98 06/03/22 19:06 Oxygen Delivery Method 06/03/22 19:06 Course Orders Ordered: Discontinued Medications [place] Carbonate ([place] 150 Mg Ir Capsule) 300 mg PO NOW ONE Stop: 06/03/22 19:47 Last Admin: 06/03/22 19:59 Dose: 300 mg Documented By: KATHI Lorazepam (Lorazepam 0.5 Mg Tablet) 2 mg PO NOW ONE Stop: 06/03/22 21:14 Last Admin: 06/03/22 21:34 Dose: 2 mg Documented By: KATHI Olanzapine (Olanzapine Odt 10 Mg Tab) 10 mg PO NOW ONE Stop: 06/03/22 19:47 Last Admin: 06/03/22 19:53 Dose: 10 mg Documented By: RAPHAEL Olanzapine (Olanzapine Odt 10 Mg Tab) 20 mg PO NOW ONE Stop: 06/03/22 21:03 Last Admin: 06/03/22 21:05 Dose: 20 mg Documented By: KATHI Reevaluation(s) Reevaluation #1: Patient still actively hallucinating and feeling more agitated. He is requesting additional medication. Has had good response to zyprexa and ativan in the past according to patient and prior visits. Time: 21:03 Vital Signs Vital signs: Vital Signs - 8 hr 06/03/22 19:06 Temperature 98.8 F Pulse Rate 80 Respiratory Rate 16 Blood Pressure 139/89 Pulse Oximetry 98 Oxygen Delivery Method Room Air MDM - Psych Lab Data Result diagrams: 06/03/22 19:49 06/03/22 19:49 Labs: Lab Results 06/03/22 06/03/22 06/03/22 Range/Units 17:15 17:15 19:15 WBC (4.5-11.0) X10^3/uL RBC (4.5-5.9) X10^6/uL Hgb (13.5-17.5) g/dL Hct (41-53) % MCV (80-100) fL MCH (26-34) PG MCHC (30-36) % RDW (11.6-14.8) % Plt Count (150-400) X10^3/uL Neut % (Auto) (50-75) % Lymph % (Auto) (25-40) % [place] % (Auto) (3-14) % Eos % (Auto) (2-4) % Baso % (Auto) (0-2) % Neut # (Auto) (9250-2629) /uL Lymph # (Auto) (5618-7787) /uL [place] # (Auto) (0-900) /uL Eos # (Auto) (0-450) /uL Baso # (Auto) (0-100) /uL Sodium (137-145) mmol/L Potassium (3.4-5.1) mmol/L Chloride (98-107) mmol/L Carbon Dioxide (22-32) mmol/L BUN (9-20) mg/dL Creatinine (0.66-1.25) mg/dL Estimated GFR (>60) mL/min BUN/Creatinine Ratio (6-22) Glucose (70-100) mg/dL Calcium (8.4-10.2) mg/dL Total Bilirubin (0.2-1.3) mg/dL AST (17-59) IU/L ALT (<50) IU/L Alkaline Phosphatase (38-126) U/L Total Protein (6.3-8.2) g/dL Albumin (3.5-5.0) g/dL Globulin (1.7-4.1) g/dL Albumin/Globulin Ratio (1.0-2.8) TSH (0.47-4.68) uIU/mL Free T4 (0.78-2.19) ng/dL Urine Color Yellow Urine Appearance Clear Urine pH 5.5 (4.5-8.0) Ur Specific [place] >=1.030 H (1.000-1.035) Urine Protein Trace H (Negative) Urine Glucose (UA) Negative (Negative) g/dL Urine Ketones Negative (NEGATIVE) Urine Occult Blood Negative (Negative) Urine Nitrate Negative (Negative) Urine Bilirubin Negative (NEGATIVE) Urine Urobilinogen 0.2 (0.2) E.U./dL Ur Leukocyte Esterase Negative (NEGATIVE) Urine RBC None seen (0-5/HPF) Urine WBC 1-5/hpf (0-5/HPF) Urine Bacteria None seen (None) Hyaline Casts 1-5/lpf (None) Ur Culture Indicated? Cult not indicated Salicylates (<20) mg/dL U Opiates 300ng/mL cut Positive H (Negative) Ur Oxycodone Screen Negative (Negative) Urine Methadone Screen Negative (Negative) Acetaminophen (10-30) ug/mL Ur Barbiturates Screen Negative (Negative) U Tricyclic Antidepress Negative (Negative) Ur Phencyclidine Scrn Negative (Negative) Ur Amphetamines Screen Negative (Negative) U Methamphetamines Scrn Negative (Negative) Ur MDMA Scrn (Ecstasy) Negative (Negative) U Benzodiazepines Scrn Negative (Negative) [place] (0.6-1.2) mmol/L Urine Cocaine Screen Negative (Negative) U Marijuana (THC) Screen Negative (Negative) Ethyl Alcohol ( - 10) mg/dL SARS-CoV-2 (PCR) Negative (Negative) 06/03/22 06/03/22 06/03/22 Range/Units 19:49 19:49 19:49 WBC 11.0 (4.5-11.0) X10^3/uL RBC 4.83 (4.5-5.9) X10^6/uL Hgb 14.5 (13.5-17.5) g/dL Hct 42.6 (41-53) % MCV 88.2 (80-100) fL MCH 29.9 (26-34) PG MCHC 33.9 (30-36) % RDW 14.0 (11.6-14.8) % Plt Count 248 (150-400) X10^3/uL Neut % (Auto) 70.4 (50-75) % Lymph % (Auto) 23.2 L (25-40) % [place] % (Auto) 4.6 (3-14) % Eos % (Auto) 1.3 L (2-4) % Baso % (Auto) 0.5 (0-2) % Neut # (Auto) 7700 H (7091-4119) /uL Lymph # (Auto) 2500 (1494-3159) /uL [place] # (Auto) 500 (0-900) /uL Eos # (Auto) 100 (0-450) /uL Baso # (Auto) 100 (0-100) /uL Sodium 142 (137-145) mmol/L Potassium 3.9 (3.4-5.1) mmol/L Chloride 107 (98-107) mmol/L Carbon Dioxide 26 (22-32) mmol/L BUN 14 (9-20) mg/dL Creatinine 0.89 (0.66-1.25) mg/dL Estimated GFR > 60 (>60) mL/min BUN/Creatinine Ratio 15.7 (6-22) Glucose 111 H (70-100) mg/dL Calcium 9.9 (8.4-10.2) mg/dL Total Bilirubin 0.3 (0.2-1.3) mg/dL AST 21 (17-59) IU/L ALT 20 (<50) IU/L Alkaline Phosphatase 66 (38-126) U/L Total Protein 8.0 (6.3-8.2) g/dL Albumin 4.7 (3.5-5.0) g/dL Globulin 3.3 (1.7-4.1) g/dL Albumin/Globulin Ratio 1.4 (1.0-2.8) TSH 2.83 (0.47-4.68) uIU/mL Free T4 0.95 (0.78-2.19) ng/dL Urine Color Urine Appearance Urine pH (4.5-8.0) Ur Specific [place] (1.000-1.035) Urine Protein (Negative) Urine Glucose (UA) (Negative) g/dL Urine Ketones (NEGATIVE) Urine Occult Blood (Negative) Urine Nitrate (Negative) Urine Bilirubin (NEGATIVE) Urine Urobilinogen (0.2) E.U./dL Ur Leukocyte Esterase (NEGATIVE) Urine RBC (0-5/HPF) Urine WBC (0-5/HPF) Urine Bacteria (None) Hyaline Casts (None) Ur Culture Indicated? Salicylates < 1.0 (<20) mg/dL U Opiates 300ng/mL cut (Negative) Ur Oxycodone Screen (Negative) Urine Methadone Screen (Negative) Acetaminophen < 10 (10-30) ug/mL Ur Barbiturates Screen (Negative) U Tricyclic Antidepress (Negative) Ur Phencyclidine Scrn (Negative) Ur Amphetamines Screen (Negative) U Methamphetamines Scrn (Negative) Ur MDMA Scrn (Ecstasy) (Negative) U Benzodiazepines Scrn (Negative) [place] (0.6-1.2) mmol/L Urine Cocaine Screen (Negative) U Marijuana (THC) Screen (Negative) Ethyl Alcohol < 10 ( - 10) mg/dL SARS-CoV-2 (PCR) (Negative) 06/03/22 Range/Units 19:49 WBC (4.5-11.0) X10^3/uL RBC (4.5-5.9) X10^6/uL Hgb (13.5-17.5) g/dL Hct (41-53) % MCV (80-100) fL MCH (26-34) PG MCHC (30-36) % RDW (11.6-14.8) % Plt Count (150-400) X10^3/uL Neut % (Auto) (50-75) % Lymph % (Auto) (25-40) % [place] % (Auto) (3-14) % Eos % (Auto) (2-4) % Baso % (Auto) (0-2) % Neut # (Auto) (0322-0334) /uL Lymph # (Auto) (2537-5018) /uL [place] # (Auto) (0-900) /uL Eos # (Auto) (0-450) /uL Baso # (Auto) (0-100) /uL Sodium (137-145) mmol/L Potassium (3.4-5.1) mmol/L Chloride (98-107) mmol/L Carbon Dioxide (22-32) mmol/L BUN (9-20) mg/dL Creatinine (0.66-1.25) mg/dL Estimated GFR (>60) mL/min BUN/Creatinine Ratio (6-22) Glucose (70-100) mg/dL Calcium (8.4-10.2) mg/dL Total Bilirubin (0.2-1.3) mg/dL AST (17-59) IU/L ALT (<50) IU/L Alkaline Phosphatase (38-126) U/L Total Protein (6.3-8.2) g/dL Albumin (3.5-5.0) g/dL Globulin (1.7-4.1) g/dL Albumin/Globulin Ratio (1.0-2.8) TSH (0.47-4.68) uIU/mL Free T4 (0.78-2.19) ng/dL Urine Color Urine Appearance Urine pH (4.5-8.0) Ur Specific [place] (1.000-1.035) Urine Protein (Negative) Urine Glucose (UA) (Negative) g/dL Urine Ketones (NEGATIVE) Urine Occult Blood (Negative) Urine Nitrate (Negative) Urine Bilirubin (NEGATIVE) Urine Urobilinogen (0.2) E.U./dL Ur Leukocyte Esterase (NEGATIVE) Urine RBC (0-5/HPF) Urine WBC (0-5/HPF) Urine Bacteria (None) Hyaline Casts (None) Ur Culture Indicated? Salicylates (<20) mg/dL U Opiates 300ng/mL cut (Negative) Ur Oxycodone Screen (Negative) Urine Methadone Screen (Negative) Acetaminophen (10-30) ug/mL Ur Barbiturates Screen (Negative) U Tricyclic Antidepress (Negative) Ur Phencyclidine Scrn (Negative) Ur Amphetamines Screen (Negative) U Methamphetamines Scrn (Negative) Ur MDMA Scrn (Ecstasy) (Negative) U Benzodiazepines Scrn (Negative) [place] 0.5 L (0.6-1.2) mmol/L Urine Cocaine Screen (Negative) U Marijuana (THC) Screen (Negative) Ethyl Alcohol ( - 10) mg/dL SARS-CoV-2 (PCR) (Negative) MDM Narrative Medical decision making narrative: This is a 52-year-old male with known psychiatric history. Patient seeking voluntary placement he is had worsening suicidal ideation and internal stimuli the history of bipolar. Patient had labs, COVID and urine and is medically cleared. Was given his home medications. Patient is currently voluntary. Patient states after he is received medications here in the department on top of his normal medications he feels significantly better. He would like to discharge at this time he is still open to treatment in the future but feels that he safe currently and would like to go smoke. He was offered a nicotine patch but defers. Contracts for safety, he is cooperative his thoughts are o rganized, he denies any suicidal thoughts or ideation or thoughts of harming others at this time and he states the voices are no longer telling him to harm himself. Discharge Plan Departure Patient Disposition: Home Clinical Impression: Schizophrenia Activity Restrictions/Additional Instructions: You are welcome to return at any time for re-evaluation and treatment. If you have recurrent suicidal thoughts thoughts of harming yourself or others please return if you are having worsening hallucinations, feel unsafe either call 911 or come back to the emergency department. If you're feeling suicidal or having suicidal thoughts, contact the suicide hotline: (this is also a resource hotline number) . Prescriptions: No Action lithium carbonate 300 mg tablet extended release 600 mg PO BID Rx Instructions: take with breakfast and dinner hydroxyzine HCl 50 mg tablet 25 mg PO Q6HR olanzapine 10 mg tablet 5 mg PO BEDTIME Label Comments: Take 1 tablet by mouth 2 times daily for 30 days. Indications Manic Phase of Manic-Depression methocarbamol 500 mg tablet 500 mg PO BID PRN (Reason: muscle spasm) Qty: 14 0RF hydrocodone-acetaminophen 5-325 mg tablet 1 tab PO BID PRN (Reason: pain) Qty: 7 0RF methocarbamol 500 mg Tablet 500 mg PO BID PRN (Reason: Spasms) hydrocodone-acetaminophen [[place]] 5-325 mg Tablet 5 - 325 tab PO BID PRN (Reason: Pain (Scale Score 4-6)) ketorolac 10 mg Tablet 10 mg PO Q8HR PRN (Reason: Pain (Scale Score 1-3)) Visit Report Forms: Patient Portal/API
[2022-06-03 19:49] LABS: Bacteria Urine None Seen; Culture Indicated Urine Cult Not Indicated; Hyaline Casts Urine 1-5/LPF; RBC Urine None Seen (0-5/HPF); WBC Urine 1-5/HPF (0-5/HPF)
[2022-06-03 19:49] LABS: UR Morphine/Opiate cutoff 300 Positive (Negative); Ur Creatinine Normal (Normal); Ur Specific Gravity Normal (Normal); Urine Amphetamines Negative (Negative); Urine Barbiturates Negative (Negative); Urine Benzodiazepines Negative (Negative); Urine Cocaine Negative (Negative); Urine MDMA Negative (Negative); Urine Methadone Negative (Negative); Urine Methamphetamines Negative (Negative); Urine Oxycodone Negative (Negative); Urine Phencyclidine Negative (Negative); Urine Tetrahydrocannabinol Negative (Negative); Urine Tricyclic Antidepressant Negative (Negative); Urine pH Normal (Normal)
[2022-06-03] MEDS: OLANZapine ODT 10 MG TAB PO (19:53)
[2022-06-03] MEDS: LITHIUM 150 MG IR CAPSULE 300 MG PO (19:59)
[2022-06-03 20:01] LABS: COVID19 -Nasal RAPID Negative (Negative)
[2022-06-03 20:02] LABS: Add Manual Diff / Slide Review NO; Basophils Absolute Auto 100 /uL (0-100); Basophils Percent Auto 0.5 % (0-2); Eosinophils Absolute Auto 100 /uL (0-450); Eosinophils Percent Auto 1.3 % (2-4); Hematocrit 42.6 % (41-53); Hemoglobin 14.5 g/dL (13.5-17.5); Lymphocytes Absolute Auto 2500 /uL (1100-4500); Lymphocytes Percent Auto 23.2 % (25-40); Mean Corpuscular HGB Conc 33.9 % (30-36); Mean Corpuscular Hemoglobin 29.9 PG (26-34); Mean Corpuscular Volume 88.2 fL (80-100); Monocytes Absolute Auto 500 /uL (0-900); Monocytes Percent Auto 4.6 % (3-14); Neutrophils Absolute Auto 7700 /uL (1500-7000); Neutrophils Percent Auto 70.4 % (50-75); Platelet Count 248 X10^3/uL (150-400); Red Blood Cell Count 4.83 X10^6/uL (4.5-5.9)
--- NOTE | 2022-06-03 20:09 | CM.SWNOTE ---
Addendum entered by Kitty Paula 06/03/22 20:12: COUNSEL receives return call from [facility] office who reports there are no warrants for patient. Original Note: COUNSEL Assessment COUNSEL - Assisted Living Director Assessment COUNSEL - Assisted Living Director Assessment Start: 06/03/22 19:38 Freq: Status: Active Protocol: Document 06/03/22 19:38 LN (Rec: 06/03/22 20:09 LN [id number]) COUNSEL/Assisted Living Director Assessment Time Spent with Patient Start date 06/03/22 Visit Start Time 19:20 End date 06/03/22 Visit End Time 19:30 Total time Care Management spent on 10 minutes patient visit-in minutes Mental Health Screening Include Onset, Duration, Intensity Presenting Problem Patient presents to ED due to concern for severe SI, HI, Anxiety and depression. Patient endorses he believes he has a warrant for his arrest with [facility] [place] [facility] [place]. Patient presented earlier today due to concern for back pain, patient endorses these symptoms started after his discharge from the ED. Patient endorses concern for his ability to keep himself safe. Precipitating Event(s) Patient endorses concern for a warrant out for his arrest, patient endorses increase in anxiety and depression recently today. Patient Strengths Patient is seeking help, patient wants to turn himself in or seek voluntary inpatient hospitalization. Current Behavioral Health Provider(s) Patient denies current Include Facility, Provider, Ph. # provider and states he is trying to get in to see providers at [facility] and states he had a provider earlier. Psych. Hx Mental Health and Chemical Patient has hx of Dependency Methamphetamine use, Schizophrenia, SI, HI, self harm and acute psychosis. Patient endorses that he is prescribed medication by provider at [facility]. Patient has marcin for hydroxodone-axetaminophen, hydroxyzine HCl, Ketorolac, [place] carbonate, methocarbamol, olazapine. Patient hx of THC, methamphetamine, heroin and acid use but states that he stopped using substances a week ago, patient denies ETOH use. Per toxicology screen patient is positve for Opiates. Family Hx of Behavioral Abuse Not assessed Psychiatric Hospitalizations (date(s)/ Patient has hx of [facility] location) inpatient hospitalizations. Per EMR: [facility] on 12/19/21 to [facility], voluntary to [facility] on 09/06/21. Patient also endorses hx of inpatient stay at [facility]. Psychosocial information & Support Patient is 52 y/o male who is Systems currently homeless but states he is from [place], [place]. 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 Patient endorses to online program coordinator that the crime was regarding murder but patient denies this accusation. Patient endorses that he was in [place], [place] fdc until 2020. Mental Status Orientation (Person/Place/Time) A/Ox3 Stated Mood don't feel good Affect (Congruent with Mood?) euthymic/anxious, full range, congruent with mood. Thought Content - Specify/Describe Patient endorses visual and Obsessions, Delusions, Hallucinations auditory hallucinations on regular basis. In ED patient presents responding to internal stimuli and talking to self. Patient endorses seeing visions from the past, memories and flashbacks. Patient endorses hearing threats and put downs. Patient presents with concern that he has a warrant for his arrest, and gives consent for COUNSEL to contact [facility] office to confirm or deny this. COUNSEL conducts [facility] DOC warrant search and no results were listed. Thought Processes (Mhhoxdk-Lbicpubs-Vlpo circumstantial Jdjnwyno-Ugxlqtmd-Pbtyqarivs- Yezbjmghhfuglb-Akvtosd-Efiinhkitfho- Thought Blocking) Speech (Sxnqow-Ywbk-Idzvsxx-Rapid-Soft- Rapid/slurred. Patient is Loud-Pressured) difficult to understand but very calm and communicative. Motor (Pcfiyo-Zukwrlxxz-Cnyy-Other) normal Insight (Mayk-Vlam-Bmms/Limited) poor/fair Judgement (Rrul-Iqjb-Mbbs/Limited) poor/fair Impulse Control (Adequate-Impaired) adequate Memory (Mrkvcywfv-Ddhmwy-Qprjyo, intact, not formally assessed Impaired-Intact) Concentration (Intact-Impaired) intact Attention (Intact-Impaired) intact Behavior (Appropriate-Inappropriate) appropriate Additional Comment Patient presents as calm, communicative, and cooperative . Risk Assessment Suicidal Ideation (Plan) Yes Homicidal Ideation (Plan) Yes Comment Patient endorses current SI and states he has thoughts of using a knife to cut his wrists and throat. Patient denies access to a knife at this time. Patient endorses hx of injecting rat poison and drugs in his body in attempt to harm self. Patient endorse current vague HI and states he would hurt anyone that wants to hurt him but denies plans of how he would hurt anyone. Intervention Intervention COUNSEL enters room to meet with patient. Patient endorses concern for his increase in psychiatric symptoms today. Patient endorses since he left the ED earlier today he started getting anxiety, had an increase in SI and HI thoughts . Patient endorses concern for his safety. Patient presents responding to internal stimuli at both ED encounters today. Patient endorses concern for having a warrant for his arrest and states that he wants to turn himself in or go to voluntary inpatient hospital. COUNSEL calls [facility] dispatch and is awaiting confirmation of whether or not patient has a warrant for his arrest. It is the opinion of this COUNSEL that patient is appropriate for and will benefit from inpatient hospitalization. Patient is endorsing his desire for voluntary inpatient and is presenting as cooperative and calm and a good candidate. COUNSEL reviews the above with ED provider Dr. Marie who endorses agreement and understanding. Plan RA Plan ED team to seek voluntary inpatient bed for patient when medically clear. OFELIA Adam
[2022-06-03 20:31] LABS: Lithium 0.5 mmol/L (0.6-1.2)
[2022-06-03 20:34] LABS: Acetaminophen < 10 ug/mL (10-30); Alanine Aminotransferase 20 IU/L (<50); Albumin 4.7 g/dL (3.5-5.0); Albumin Globulin Ratio 1.4 (1.0-2.8); Alkaline Phosphatase 66 U/L (38-126); Aspartate Aminotransferase 21 IU/L (17-59); BUN Creatinine Ratio 15.7 (6-22); Bilirubin Total 0.3 mg/dL (0.2-1.3); Blood Urea Nitrogen 14 mg/dL (9-20); Calcium 9.9 mg/dL (8.4-10.2); Carbon Dioxide 26 mmol/L (22-32); Chloride 107 mmol/L (98-107); Estimated Glomerular Filt Rate > 60 mL/min (>60); Ethanol (ETOH) < 10 mg/dL; Globulin 3.3 g/dL (1.7-4.1); Glucose 111 mg/dL (70-100); HEMOLYSIS < 15 (0-50); Potassium 3.9 mmol/L (3.4-5.1); Salicylate < 1.0 mg/dL (<20); Sodium 142 mmol/L (137-145)
--- NOTE | 2022-06-03 20:42 | PC.NURSE ---
Patient mumbling and talking to himself that is difficult to understand. Became agitated in speech and started saying things such as Shut your mouth boy and Who do you think you're talking to little boy? Along with speech that is difficult to understand.
--- NOTE | 2022-06-03 20:43 | CM.SWNOTE ---
FIBERGLASSER Note FIBERGLASSER calls [facility] for voluntary bed census, it is reported that [facility], [place], [place], [facility], [place], and [facility]. FIBERGLASSER calls [facility] intake, it is reported that they can review patient for tomorrow, FIBERGLASSER faxes clinicals for review. Plan: CIVIL ESTIMATOR SERVICE COORDINATOR to seek voluntary bed for patient. Kitty Paula, PROTECTION MGR
--- NOTE | 2022-06-03 20:46 | PC.NURSE ---
Patient states that he is continuing to hear voices.
[2022-06-03 20:50] LABS: Free T4, Direct Thyroxine 0.95 ng/dL (0.78-2.19)
--- NOTE | 2022-06-03 20:56 | PC.NURSE ---
States that there are men outside the room talking to him. Recognizes that he is having outbursts
[2022-06-03 21:04] LABS: Thyroid Stimulating Hormone 2.83 uIU/mL (0.47-4.68)
[2022-06-03] MEDS: OLANZapine ODT 10 MG TAB 20 MG PO (21:05)
--- NOTE | 2022-06-03 21:08 | PC.NURSE ---
Understand and comprehends what medication is being administered. Yelling at people he is perceiving and is gradually yelling more consistently.
--- NOTE | 2022-06-03 21:15 | PC.NURSE ---
Fully cooperative with EKG. States that the voices are telling him he should .
[2022-06-03] MEDS: LORazepam 0.5 MG TABLET 2 MG PO (21:34)
--- NOTE | 2022-06-03 21:55 | PC.NURSE ---
Patient says he is feeling better and that the voices are less aggressive.
--- NOTE | 2022-06-03 22:04 | PC.NURSE ---
Being discharged. States that he will come back if the voices get aggressive/continue again.
[2022-06-03 22:09] VITALS: BP 151/97; PULSE 80; RESP 24; O2SAT 100
== END 2022-06-03 22:12 | disposition home or self-care (01) ==
PROVIDERS: Emergency Provider Emergency Medicine
DX: F20.9 Schizophrenia, unspecified (principal); Z20.822 Contact with and (suspected) exposure to COVID-19; M54.50 Low back pain, unspecified
CPT/HCPCS: 80053; 80178; 80305; 80320; 80329; 81001; 84439; 84443; 85025; 87635; 93005; 93010; 96372; 99283; 99284; C9803; G0480; J1885

== ENCOUNTER 2022-06-04 00:50 | Emergency (ER) | payer MEDICARE, MEDICAID, SELFPAY ==
[2022-06-04 00:53] VITALS: BP 132/80; PULSE 73; RESP 20; TEMP 35.8; O2SAT 98; BMI 26.5
[2022-06-04 01:57] LABS: UR Morphine/Opiate cutoff 300 Positive (Negative); Ur Creatinine 20 (Normal); Ur Specific Gravity 1.025 (Normal); Urine Cocaine Negative (Negative); Urine Tetrahydrocannabinol Negative (Negative); Urine pH 5 (Normal)
[2022-06-04 01:58] LABS: Urine Amphetamines Negative (Negative); Urine Barbiturates Negative (Negative); Urine Benzodiazepines Positive (Negative); Urine MDMA Negative (Negative); Urine Methadone Negative (Negative); Urine Methamphetamines Negative (Negative); Urine Oxycodone Negative (Negative); Urine Phencyclidine Negative (Negative); Urine Tricyclic Antidepressant Negative (Negative)
[2022-06-04 02:00] LABS: Add Manual Diff / Slide Review NO; Basophils Absolute Auto 100 /uL (0-100); Basophils Percent Auto 0.4 % (0-2); Eosinophils Absolute Auto 300 /uL (0-450); Eosinophils Percent Auto 2.2 % (2-4); Hematocrit 44.7 % (41-53); Hemoglobin 14.7 g/dL (13.5-17.5); Lymphocytes Absolute Auto 3700 /uL (1100-4500); Lymphocytes Percent Auto 28.5 % (25-40); Mean Corpuscular HGB Conc 32.8 % (30-36); Mean Corpuscular Hemoglobin 29.5 PG (26-34); Mean Corpuscular Volume 89.7 fL (80-100); Monocytes Absolute Auto 700 /uL (0-900); Monocytes Percent Auto 5.5 % (3-14); Neutrophils Absolute Auto 8300 /uL (1500-7000); Neutrophils Percent Auto 63.4 % (50-75); Platelet Count 242 X10^3/uL (150-400); Red Blood Cell Count 4.98 X10^6/uL (4.5-5.9); Red Cell Distribution Width 14.5 % (11.6-14.8); White Blood Cell Count 13.2 X10^3/uL (4.5-11.0)
[2022-06-04 02:08] LABS: Creatine Kinase 62 U/L (55-170)
[2022-06-04 02:10] LABS: Acetaminophen < 10 ug/mL (10-30); Alanine Aminotransferase 23 IU/L (<50); Albumin 4.4 g/dL (3.5-5.0); Albumin Globulin Ratio 1.4 (1.0-2.8); Alkaline Phosphatase 66 U/L (38-126); Aspartate Aminotransferase 28 IU/L (17-59); BUN Creatinine Ratio 19.2 (6-22); Bilirubin Total 0.4 mg/dL (0.2-1.3); Blood Urea Nitrogen 14 mg/dL (9-20); Calcium 9.5 mg/dL (8.4-10.2); Carbon Dioxide 26 mmol/L (22-32); Chloride 104 mmol/L (98-107); Estimated Glomerular Filt Rate > 60 mL/min (>60); Ethanol (ETOH) < 10 mg/dL; Globulin 3.2 g/dL (1.7-4.1); Glucose 92 mg/dL (70-100); HEMOLYSIS 23 (0-50); Potassium 3.6 mmol/L (3.4-5.1); Salicylate < 1.0 mg/dL (<20); Sodium 140 mmol/L (137-145); Total Protein 7.6 g/dL (6.3-8.2)
[2022-06-04 03:04] LABS: TSH w/ Reflex to FT4 3.32 uIU/mL (0.47-4.68)
--- NOTE | 2022-06-04 03:06 | PC.NURSE ---
paperwork was faxed to Hank Melton, Sonya, and soni mandujano. Sonya declined. Soni will call for intake in the morning. [facility] f/u after 0900
--- NOTE | 2022-06-04 03:51 | ED_ITS ---
HPI - Psych <Jaquelin Marie DO - Last Filed: 06/10/22 07:37> General Chief Complaint: Psychiatric Symptoms Stated Complaint: SI Time Seen by Provider: 06/04/22 01:00 Source: patient Mode of arrival: Ambulatory Limitations: no limitations History of Present Illness HPI Narrative: This is a 52-year-old male with history of chronic back pain and bipolar disorder who represents requesting placement for inpatient psychiatric care after having suicidal ideation. Patient was seen earlier today received Zyprexa oral Ativan which improved the voices in his head they were no longer telling him to kill himself and he elected to leave voluntarily that time. Patient was able to contract for safety sake he return if he felt worse and did so. He normally takes lithium twice daily, Zyprexa in the evening and hydroxyzine 4 times daily. Patient has chronic back issues but is not on any chronic pain medications. He does have a history of marijuana methamphetamine abuse described last use 10 days ago. Was negative on his last urine drug screen. Denies any surgeries. He does use tobacco, denies EtOH. Related Data Home Medications Medication Instructions Recorded Confirmed hydroxyzine HCl 50 mg tablet 25 mg PO Q6HR 09/05/21 06/03/22 lithium carbonate 300 mg 600 mg PO BID 09/05/21 06/03/22 tablet,extended release olanzapine 10 mg tablet 5 mg PO BEDTIME 12/19/21 06/03/22 hydrocodone 5 mg-acetaminophen 325 5 - 325 tab PO BID PRN Pain (Scale 06/03/22 06/03/22 mg tablet Score 4-6) ketorolac 10 mg tablet 10 mg PO Q8HR PRN Pain (Scale 06/03/22 06/03/22 Score 1-3) methocarbamol 500 mg tablet 500 mg PO BID PRN Spasms 06/03/22 06/03/22 Previous Rx's Medication Instructions Recorded hydrocodone 5 mg-acetaminophen 325 1 tab PO BID PRN pain #7 tabs 06/03/22 mg tablet methocarbamol 500 mg tablet 500 mg PO BID PRN muscle spasm #14 06/03/22 tabs Allergies Allergy/AdvReac Type Severity Reaction Status Date / Time No Known Drug Allergies Allergy Verified 06/04/22 07:06 Review of Systems <DO Aida Ba Last Filed: 06/10/22 07:37> Review of Systems ROS Unobtainable: All systems reviewed & are unremarkable except as noted in HPI and below Patient History <Jaquelin Marie DO - Last Filed: 06/10/22 07:37> Medical History Methamphetamine use Schizophrenia Social History (System 06/04/22 @ 07:06 by Lady Chica Erickson) Smoking Status: Current every day smoker Smoking Status: Current every day smoker alcohol intake frequency: other Substance Use Type: marijuana and methamphetamine Exam <Jaquelin Marie DO - Last Filed: 06/10/22 07:37> Narrative Exam Narrative: GENERAL: Alert and oriented x three, mild distress. Fidgety, cooperative. HEENT: Head normocephalic, atraumatic, EOMI, pupils reactive, face symmetric, moist mucous membranes NECK: Supple, full range of motion CARDIOVASCULAR: Regular rate and rhythm without murmurs, rubs or gallops. RESPIRATORY: Breath sounds equal bilaterally, no wheezes rales or rhonchi. ABDOMEN: Soft, nontender. Normoactive bowel sounds all 4 quadrants. No guarding or rebound, rigidity, no mass : No CVA tenderness EXTREMITIES: Normal range of motion, no clubbing or edema. Neurovascularly intact NEUROLOGICAL: Cranial nerves II through XII grossly intact. Moving all extremities. Normal gait. SKIN: Warm, dry, no petechiae, no rashes or lesions. PSYCH: Suicidal ideation, hallucinations that are auditory, Initial Vital Signs Initial Vital Signs: Vital Signs Temperature 96.4 F L 06/04/22 00:53 Pulse Rate 73 06/04/22 00:53 Respiratory Rate 20 06/04/22 00:53 Blood Pressure 132/80 06/04/22 00:53 Pulse Oximetry 98 06/04/22 00:53 Oxygen Delivery Method 06/04/22 00:53 <Carlos A Wright MD - Last Filed: 06/04/22 12:01> Initial Vital Signs Initial Vital Signs: Vital Signs Temperature 96.4 F L 06/04/22 00:53 Pulse Rate 73 06/04/22 00:53 Respiratory Rate 20 06/04/22 00:53 Blood Pressure 132/80 06/04/22 00:53 Pulse Oximetry 98 06/04/22 00:53 Oxygen Delivery Method 06/04/22 00:53 Course <Jaquelin Marie DO - Last Filed: 06/10/22 07:37> Orders Ordered: Discontinued Medications Hydrocodone Bitart/Acetaminophen (Hydrocodone/Acet 5/325 Tablet) 1 tab PO NOW ONE Stop: 06/04/22 11:09 Last Admin: 06/04/22 11:50 Dose: 1 tab Documented By: LILIAM Hydroxyzine Pamoate (Hydroxyzine Pamoate 25 Mg Capsule) 25 mg PO NOW ONE Stop: 06/04/22 11:09 Last Admin: 06/04/22 11:50 Dose: 25 mg Documented By: LILIAM Ketorolac Tromethamine (Ketorolac 10 Mg Tablet) 10 mg PO NOW ONE Stop: 06/04/22 11:10 Last Admin: 06/04/22 11:50 Dose: 10 mg Documented By: LILIAM Arcata Carbonate (Arcata 150 Mg Ir Capsule) 600 mg PO NOW ONE Stop: 06/04/22 11:10 Last Admin: 06/04/22 12:05 Dose: 600 mg Documented By: LILIAM Methocarbamol (Methocarbamol 500 Mg Tablet) 500 mg PO NOW ONE Stop: 06/04/22 11:10 Last Admin: 06/04/22 11:51 Dose: 500 mg Documented By: LILIAM Nicotine (Nicotine 21 Mg Patch) 21 mg TOP NOW ONE Stop: 06/04/22 12:29 Last Admin: 06/04/22 12:42 Dose: 21 mg Documented By: LILIAM Vital Signs Vital signs: Vital Signs - 8 hr 06/04/22 04:10 06/04/22 10:03 Pulse Rate 66 73 Respiratory Rate 18 16 Blood Pressure 105/62 128/68 Pulse Oximetry 100 97 Oxygen Delivery Method Room Air Room Air <Carlos A Wright MD - Last Filed: 06/04/22 12:01> Orders Ordered: Discontinued Medications Hydrocodone Bitart/Acetaminophen (Hydrocodone/Acet 5/325 Tablet) 1 tab PO NOW ONE Stop: 06/04/22 11:09 Last Admin: 06/04/22 11:50 Dose: 1 tab Documented By: LILIAM Hydroxyzine Pamoate (Hydroxyzine Pamoate 25 Mg Capsule) 25 mg PO NOW ONE Stop: 06/04/22 11:09 Last Admin: 06/04/22 11:50 Dose: 25 mg Documented By: LILIAM Ketorolac Tromethamine (Ketorolac 10 Mg Tablet) 10 mg PO NOW ONE Stop: 06/04/22 11:10 Last Admin: 06/04/22 11:50 Dose: 10 mg Documented By: LILIAM [place] Carbonate (Arcata 150 Mg Ir Capsule) 600 mg PO NOW ONE Stop: 06/04/22 11:10 Last Admin: 06/04/22 12:05 Dose: 600 mg Documented By: LILIAM Methocarbamol (Methocarbamol 500 Mg Tablet) 500 mg PO NOW ONE Stop: 06/04/22 11:10 Last Admin: 06/04/22 11:51 Dose: 500 mg Documented By: LILIAM Nicotine (Nicotine 21 Mg Patch) 21 mg TOP NOW ONE Stop: 06/04/22 12:29 Last Admin: 06/04/22 12:42 Dose: 21 mg Documented By: LILIAM Vital Signs Vital signs: Vital Signs - 8 hr 06/04/22 04:10 06/04/22 10:03 Pulse Rate 66 73 Respiratory Rate 18 16 Blood Pressure 105/62 128/68 Pulse Oximetry 100 97 Oxygen Delivery Method Room Air Room Air MDM - Psych <Jaquelin Marie, - Last Filed: 06/10/22 07:37> Lab Data Result diagrams: 06/04/22 01:38 06/04/22 01:38 Labs: Lab Results 06/04/22 06/04/22 06/04/22 Range/Units 01:23 01:38 01:38 WBC 13.2 H (4.5-11.0) X10^3/uL RBC 4.98 (4.5-5.9) X10^6/uL Hgb 14.7 (13.5-17.5) g/dL Hct 44.7 (41-53) % MCV 89.7 (80-100) fL MCH 29.5 (26-34) PG MCHC 32.8 (30-36) % RDW 14.5 (11.6-14.8) % Plt Count 242 (150-400) X10^3/uL Neut % (Auto) 63.4 (50-75) % Lymph % (Auto) 28.5 (25-40) % [place] % (Auto) 5.5 (3-14) % Eos % (Auto) 2.2 (2-4) % Baso % (Auto) 0.4 (0-2) % Neut # (Auto) 8300 H (8871-2633) /uL Lymph # (Auto) 3700 (6892-2282) /uL [place] # (Auto) 700 (0-900) /uL Eos # (Auto) 300 (0-450) /uL Baso # (Auto) 100 (0-100) /uL Sodium 140 (137-145) mmol/L Potassium 3.6 (3.4-5.1) mmol/L Chloride 104 (98-107) mmol/L Carbon Dioxide 26 (22-32) mmol/L BUN 14 (9-20) mg/dL Creatinine 0.73 (0.66-1.25) mg/dL Estimated GFR > 60 (>60) mL/min BUN/Creatinine Ratio 19.2 (6-22) Glucose 92 (70-100) mg/dL Calcium 9.5 (8.4-10.2) mg/dL Magnesium (1.6-2.3) mg/dL Total Bilirubin 0.4 (0.2-1.3) mg/dL AST 28 (17-59) IU/L ALT 23 (<50) IU/L Alkaline Phosphatase 66 (38-126) U/L Total Creatine Kinase (55-170) U/L Total Protein 7.6 (6.3-8.2) g/dL Albumin 4.4 (3.5-5.0) g/dL Globulin 3.2 (1.7-4.1) g/dL Albumin/Globulin Ratio 1.4 (1.0-2.8) TSH (0.47-4.68) uIU/mL Salicylates < 1.0 (<20) mg/dL U Opiates 300ng/mL cut Positive H (Negative) Ur Oxycodone Screen Negative (Negative) Urine Methadone Screen Negative (Negative) Acetaminophen < 10 (10-30) ug/mL Ur Barbiturates Screen Negative (Negative) U Tricyclic Antidepress Negative (Negative) Ur Phencyclidine Scrn Negative (Negative) Ur Amphetamines Screen Negative (Negative) U Methamphetamines Scrn Negative (Negative) Ur MDMA Scrn (Ecstasy) Negative (Negative) U Benzodiazepines Scrn Positive H (Negative) Urine Cocaine Screen Negative (Negative) U Marijuana (THC) Screen Negative (Negative) Ethyl Alcohol < 10 ( - 10) mg/dL 06/04/22 06/04/22 Range/Units 01:38 01:38 WBC (4.5-11.0) X10^3/uL RBC (4.5-5.9) X10^6/uL Hgb (13.5-17.5) g/dL Hct (41-53) % MCV (80-100) fL MCH (26-34) PG MCHC (30-36) % RDW (11.6-14.8) % Plt Count (150-400) X10^3/uL Neut % (Auto) (50-75) % Lymph % (Auto) (25-40) % [place] % (Auto) (3-14) % Eos % (Auto) (2-4) % Baso % (Auto) (0-2) % Neut # (Auto) (9172-9463) /uL Lymph # (Auto) (2551-5898) /uL [place] # (Auto) (0-900) /uL Eos # (Auto) (0-450) /uL Baso # (Auto) (0-100) /uL Sodium (137-145) mmol/L Potassium (3.4-5.1) mmol/L Chloride (98-107) mmol/L Carbon Dioxide (22-32) mmol/L BUN (9-20) mg/dL Creatinine (0.66-1.25) mg/dL Estimated GFR (>60) mL/min BUN/Creatinine Ratio (6-22) Glucose (70-100) mg/dL Calcium (8.4-10.2) mg/dL Magnesium 2.0 (1.6-2.3) mg/dL Total Bilirubin (0.2-1.3) mg/dL AST (17-59) IU/L ALT (<50) IU/L Alkaline Phosphatase (38-126) U/L Total Creatine Kinase 62 (55-170) U/L Total Protein (6.3-8.2) g/dL Albumin (3.5-5.0) g/dL Globulin (1.7-4.1) g/dL Albumin/Globulin Ratio (1.0-2.8) TSH 3.32 (0.47-4.68) uIU/mL Salicylates (<20) mg/dL U Opiates 300ng/mL cut (Negative) Ur Oxycodone Screen (Negative) Urine Methadone Screen (Negative) Acetaminophen (10-30) ug/mL Ur Barbiturates Screen (Negative) U Tricyclic Antidepress (Negative) Ur Phencyclidine Scrn (Negative) Ur Amphetamines Screen (Negative) U Methamphetamines Scrn (Negative) Ur MDMA Scrn (Ecstasy) (Negative) U Benzodiazepines Scrn (Negative) Urine Cocaine Screen (Negative) U Marijuana (THC) Screen (Negative) Ethyl Alcohol ( - 10) mg/dL MDM Narrative Medical decision making narrative: Patient is medically cleared and signed out to Dr. Wright while awaiting possible placement for mental health. Patient is voluntary at this time. This is a 52-year-old male was seen on the last shift by Dr. Marie. He has schi zophrenia, he was discharged on the initial event but returned with concerns about hallucinations and suicidal ideation. The gentleman has been calm and cooperative. He has been evaluated by our social workers, he has agreed to admission. He is a bed available at [facility]. I reviewed the patient, he feels good about that decision. He continues his daily medications. He is medically cleared for transfer to inpatient Mental Health care.- Joselito JAMES 06/04/22@11:50AM. <Carlos A Wright MD - Last Filed: 06/04/22 12:01> Lab Data Labs: Lab Results 06/04/22 06/04/22 06/04/22 Range/Units 01:23 01:38 01:38 WBC 13.2 H (4.5-11.0) X10^3/uL RBC 4.98 (4.5-5.9) X10^6/uL Hgb 14.7 (13.5-17.5) g/dL Hct 44.7 (41-53) % MCV 89.7 (80-100) fL MCH 29.5 (26-34) PG MCHC 32.8 (30-36) % RDW 14.5 (11.6-14.8) % Plt Count 242 (150-400) X10^3/uL Neut % (Auto) 63.4 (50-75) % Lymph % (Auto) 28.5 (25-40) % [place] % (Auto) 5.5 (3-14) % Eos % (Auto) 2.2 (2-4) % Baso % (Auto) 0.4 (0-2) % Neut # (Auto) 8300 H (7742-1706) /uL Lymph # (Auto) 3700 (1408-4766) /uL [place] # (Auto) 700 (0-900) /uL Eos # (Auto) 300 (0-450) /uL Baso # (Auto) 100 (0-100) /uL Sodium 140 (137-145) mmol/L Potassium 3.6 (3.4-5.1) mmol/L Chloride 104 (98-107) mmol/L Carbon Dioxide 26 (22-32) mmol/L BUN 14 (9-20) mg/dL Creatinine 0.73 (0.66-1.25) mg/dL Estimated GFR > 60 (>60) mL/min BUN/Creatinine Ratio 19.2 (6-22) Glucose 92 (70-100) mg/dL Calcium 9.5 (8.4-10.2) mg/dL Magnesium (1.6-2.3) mg/dL Total Bilirubin 0.4 (0.2-1.3) mg/dL AST 28 (17-59) IU/L ALT 23 (<50) IU/L Alkaline Phosphatase 66 (38-126) U/L Total Creatine Kinase (55-170) U/L Total Protein 7.6 (6.3-8.2) g/dL Albumin 4.4 (3.5-5.0) g/dL Globulin 3.2 (1.7-4.1) g/dL Albumin/Globulin Ratio 1.4 (1.0-2.8) TSH (0.47-4.68) uIU/mL Salicylates < 1.0 (<20) mg/dL U Opiates 300ng/mL cut Positive H (Negative) Ur Oxycodone Screen Negative (Negative) Urine Methadone Screen Negative (Negative) Acetaminophen < 10 (10-30) ug/mL Ur Barbiturates Screen Negative (Negative) U Tricyclic Antidepress Negative (Negative) Ur Phencyclidine Scrn Negative (Negative) Ur Amphetamines Screen Negative (Negative) U Methamphetamines Scrn Negative (Negative) Ur MDMA Scrn (Ecstasy) Negative (Negative) U Benzodiazepines Scrn Positive H (Negative) Urine Cocaine Screen Negative (Negative) U Marijuana (THC) Screen Negative (Negative) Ethyl Alcohol < 10 ( - 10) mg/dL 06/04/22 06/04/22 Range/Units 01:38 01:38 WBC (4.5-11.0) X10^3/uL RBC (4.5-5.9) X10^6/uL Hgb (13.5-17.5) g/dL Hct (41-53) % MCV (80-100) fL MCH (26-34) PG MCHC (30-36) % RDW (11.6-14.8) % Plt Count (150-400) X10^3/uL Neut % (Auto) (50-75) % Lymph % (Auto) (25-40) % [place] % (Auto) (3-14) % Eos % (Auto) (2-4) % Baso % (Auto) (0-2) % Neut # (Auto) (5710-5018) /uL Lymph # (Auto) (1899-0199) /uL [place] # (Auto) (0-900) /uL Eos # (Auto) (0-450) /uL Baso # (Auto) (0-100) /uL Sodium (137-145) mmol/L Potassium (3.4-5.1) mmol/L Chloride (98-107) mmol/L Carbon Dioxide (22-32) mmol/L BUN (9-20) mg/dL Creatinine (0.66-1.25) mg/dL Estimated GFR (>60) mL/min BUN/Creatinine Ratio (6-22) Glucose (70-100) mg/dL Calcium (8.4-10.2) mg/dL Magnesium 2.0 (1.6-2.3) mg/dL Total Bilirubin (0.2-1.3) mg/dL AST (17-59) IU/L ALT (<50) IU/L Alkaline Phosphatase (38-126) U/L Total Creatine Kinase 62 (55-170) U/L Total Protein (6.3-8.2) g/dL Albumin (3.5-5.0) g/dL Globulin (1.7-4.1) g/dL Albumin/Globulin Ratio (1.0-2.8) TSH 3.32 (0.47-4.68) uIU/mL Salicylates (<20) mg/dL U Opiates 300ng/mL cut (Negative) Ur Oxycodone Screen (Negative) Urine Methadone Screen (Negative) Acetaminophen (10-30) ug/mL Ur Barbiturates Screen (Negative) U Tricyclic Antidepress (Negative) Ur Phencyclidine Scrn (Negative) Ur Amphetamines Screen (Negative) U Methamphetamines Scrn (Negative) Ur MDMA Scrn (Ecstasy) (Negative) U Benzodiazepines Scrn (Negative) Urine Cocaine Screen (Negative) U Marijuana (THC) Screen (Negative) Ethyl Alcohol ( - 10) mg/dL MDM Narrative Medical decision making narrative: This is a 52-year-old male was seen on the last shift by Dr. Marie. He has schizophrenia, he was discharged on the initial event but returned with concerns about hallucinations and suicidal ideation. The gentleman has been calm and cooperative. He has been evaluated by our social workers, he has agreed to admission. He is a bed available at [facility]. I reviewed the patient, he feels good about that decision. He continues his daily medications. He is medically cleared for transfer to inpatient Mental Health care.Aida Yee MD 06/04/22@11:50AM. Discharge Plan Departure Patient Disposition: Xfer Psychiatric Hosp Clinical Impression: Schizophrenia, Suicidal ideation, Methamphetamine abuse
[2022-06-04 04:10] VITALS: BP 105/62; PULSE 66; RESP 18; O2SAT 100
--- NOTE | 2022-06-04 07:18 | PC.NURSE ---
Patient accepted at [facility]
[2022-06-04 10:03] VITALS: BP 128/68; PULSE 73; RESP 16; O2SAT 97
--- NOTE | 2022-06-04 10:31 | PC.NURSE ---
patient coloring in bed, calm and talking to self.
[2022-06-04] MEDS: hydrOXYzine pamoate 25 MG CAPSULE PO (11:50)
[2022-06-04] MEDS: KETOROLAC 10 MG TABLET PO (11:50)
[2022-06-04] MEDS: HYDROCODONE/ACET 5/325 TABLET 1 TAB PO (11:50)
[2022-06-04] MEDS: methocarbamoL 500 MG TABLET PO (11:51)
[2022-06-04] MEDS: LITHIUM 150 MG IR CAPSULE 600 MG PO (12:05)
[2022-06-04] MEDS: NICOTINE 21 MG PATCH TOP (12:42)
[2022-06-04 12:46] VITALS: BP 123/72; PULSE 66; RESP 16; O2SAT 98
[2022-06-04 13:10] VITALS: TEMP 37.1
--- NOTE | 2022-06-04 13:12 | CM.SWNOTE ---
DIRECTOR TELEHEALTH Note Patient was accepted to both [facility] and [facility], prior to DIRECTOR TELEHEALTH's arrival to work it was decided that patient transfer to [facility]. EMS arrives at 1:00pm to transfer patient. DIRECTOR TELEHEALTH calls [facility] to let them know that patient was accepted at another facility. Plan: patient to transfer to [facility] for voluntary inpatient bed. DIANE AdamSW
--- NOTE | 2022-06-04 15:38 | PC.NURSE ---
report called to Marco Antonio Trinh at [facility].
== END 2022-06-04 13:14 ==
PROVIDERS: Emergency Provider Emergency Medicine
DX: F20.9 Schizophrenia, unspecified (principal); R45.851 Suicidal ideations
CPT/HCPCS: 36415; 80053; 80305; 80320; 80329; 82550; 83735; 84443; 85025; 99284; G0480